=== PATIENT | male | born 1950 | race Caucasian/White ===

== ENCOUNTER 2020-08-22 06:22 | Outpatient (REF) | payer MEDICARE, BC, SELFPAY | END 2020-08-22 06:23 | disposition home or self-care (01) | LOC: HO.LAB 06:22 | PROVIDERS: PCP Internal Medicine; Visit Provider Internal Medicine | DX: Z20.822 Contact with and (suspected) exposure to COVID-19 (principal) | CPT/HCPCS: 36415; C9803; U0003 ==

== ENCOUNTER → 2020-09-27 10:52 | Outpatient (BNVA) | payer MEDICARE, BC, SELFPAY | PROVIDERS: PCP Internal Medicine; Visit Provider Psychiatry & Neurology Neurology | DX: Z13.89 Encounter for screening for other disorder (principal) | CPT/HCPCS: Q3014 ==

== ENCOUNTER 2021-05-02 06:34 | Outpatient (REF) | payer MEDICARE, BC, SELFPAY ==
[2021-05-02 06:47] LABS: MANUAL DIFF FLAG NO
[2021-05-02 07:05] LABS: Basophils Absolute Auto 0.1 X10*3/uL (0.0-0.2); Basophils Percent Auto 1.1 % (0-2); Eosinophils Absolute Auto 0.4 X10*3/uL (0.0-0.4); Eosinophils Percent Auto 6.7 % (0-4); Imm Gran Abs Auto 0.01 X10*3/uL (0.00-0.03); Imm Gran Pct Auto 0.2 % (0.0-0.4); Lymphocytes Absolute Auto 1.7 X10*3/uL (1.2-4.9); Lymphocytes Percent Auto 25.2 % (20-40); Mean Corpuscular HGB Conc 33.3 g/dl (31.0-36.0); Mean Corpuscular Hemoglobin 30.2 pg (27.0-33.0); Mean Corpuscular Volume 90.5 fL (80-98); Mean Platelet Volume 8.2 fL (9.4-12.4); Monocytes Absolute Auto 0.7 X10*3/uL (0.1-1.2); Monocytes Percent Auto 10.8 % (2-11); Neutrophils Absolute Auto 3.7 X10*3/uL (2.0-8.3); Platelet Count 213 X10*3/uL (160-400); Red Blood Count 4.31 X10*6/uL (4.60-5.80); White Blood Count 6.6 X10*3/uL (4.8-10.8)
[2021-05-02 07:18] LABS: Alanine Aminotransferase 25 U/L (0-40); Albumin Level 4.1 g/dL (3.5-5.0); Alkaline Phosphatase 65 U/L (39-117); Anion Gap 12 (12-20); Aspartate Amino Transferase 15 U/L (5-37); Bilirubin Total 1.5 mg/dL (0.0-1.0); Blood Urea Nitrogen 14 mg/dL (9-16); Calcium 9.1 mg/dL (8.4-10.2); Carbon Dioxide 26 mmol/L (22-29); Chloride 107 mmol/L (96-108); Cholesterol 152 mg/dL; Estimated Glomerular Filt Rate > 60; Glucose Random 140 mg/dL (60-115); HDL Cholesterol 42 mg/dL; LDL Cholesterol Calculated 88 mg/dl; Potassium 4.5 mmol/L (3.3-5.1); Sodium 140 mmol/L (135-145); Total Protein 6.8 g/dL (6.5-8.0); Triglycerides 114 mg/dL
[2021-05-02 07:19] LABS: Estimated Average Glucose 137 mg/dL; Hemoglobin A1c % 6.4 %
[2021-05-02 07:40] LABS: Free T4 (Free Thyroxine) 1.03 ng/dL (0.71-1.85); Thyroid Stimulating Hormone 1.41 uIU/mL (0.32-4.0)
[2021-05-02 08:12] LABS: Microalbum/Creatinine Ratio Ur 5.8 ug/mg cr
[2021-05-02 09:09] LABS: Prostate Specific Antigen Scr 0.87 ng/mL (<0.05-4.0)
[2021-05-02 11:51] LABS: Folate 14.1 ng/mL (> or = 4.0)
[2021-05-02 11:53] LABS: Vitamin B12 413 pg/mL (200-900)
== END 2021-05-02 06:35 | disposition home or self-care (01) ==
LOC: HO.LAB 06:34
PROVIDERS: PCP Internal Medicine; Visit Provider Internal Medicine
DX: I10 Essential (primary) hypertension (principal); N40.1 Benign prostatic hyperplasia with lower urinary tract symptoms; E78.00 Pure hypercholesterolemia, unspecified; R35.0 Frequency of micturition; E11.65 Type 2 diabetes mellitus with hyperglycemia; Z12.5 Encounter for screening for malignant neoplasm of prostate
CPT/HCPCS: 36415; 80053; 80061; 82043; 82607; 82746; 83036; 84153; 84439; 84443; 85025

== ENCOUNTER 2021-05-11 12:31 | Outpatient (REF) | payer MEDICARE, BC, SELFPAY ==
--- NOTE | ~2021-05-11 | XR_ITS ---
EXAMINATION: XR HIP, RIGHT , CLINICAL INFORMATION: Pain COMPARISON: 2019 TECHNIQUE: Frontal and lateral views of the hip acquired. , AP pelvis FINDINGS: There is no evidence of acute fracture or dislocation. There are mild degenerative arthritic changes of the hip evident by sclerotic changes of the acetabular roof and narrowing of the joint space. Mild degenerative changes of the symphysis pubis. Mild degenerative changes of the SI joints. Adjacent pubic rami are intact. Surrounding soft tissues are unremarkable. XR/XR hip RT min 2V IMPRESSION: Mild DJD. .
== END 2021-05-11 12:32 | disposition home or self-care (01) ==
LOC: HO.XRAY 12:31
PROVIDERS: PCP Internal Medicine; Visit Provider Internal Medicine
DX: M25.551 Pain in right hip (principal)
CPT/HCPCS: 73502

== ENCOUNTER 2021-06-24 20:30 | Emergency (ER) | payer MEDICARE, BC, SELFPAY ==
--- NOTE | ~2021-06-24 | US_ITS ---
EXAMINATION: US VENOUS WITH DOPPLER LOWER EXTREMITY, RIGHT CLINICAL INFORMATION: Calf pain. Prior deep vein thrombosis. COMPARISON: Right lower extremity venous ultrasound dated 06/18/2019. TECHNIQUE: Ultrasound of the deep veins is performed from the hip to the calf with compression sonography and color and pulse Doppler assessment. Spectral analysis with color-flow imaging is performed. FINDINGS: There is normal venous compression and respiratory variation and augmented flow. The visualized common femoral vein, superficial femoral vein, profunda femoral vein, popliteal vein, and the trifurcation region shows no evidence of deep venous thrombosis. There is no significant popliteal fossa cyst. If the patient's symptoms persist, follow up ultrasound in 5 days 7 days might be of value to exclude proximal propagation from a non-visualized calf vein. US/US venous duplex LE RT IMPRESSION: No DVT demonstrated in the right lower extremity.
[2021-06-24 20:45] VITALS: BP 145/86; PULSE 74; RESP 15; TEMP 36.9; O2SAT 96; BMI 28.0
[2021-06-24 21:35] VITALS: BP 122/60; PULSE 68; RESP 16; TEMP 36.7; O2SAT 96
--- NOTE | 2021-06-24 21:40 | ED.EXTPRO ---
HPI - Extremity Problem General Chief complaint: Extremity Injury, Lower Stated complaint: rt leg pain Time Seen by Provider: 06/24/21 21:39 Source: patient Mode of arrival: ambulatory Limitations: no limitations History of Present Illness HPI Narrative: Patient history of DVT in the past complaining of pain in the right leg calf area for last 24 hours no known trauma patient drives 30-45 minutes every day. No shortness of breath no leg swelling or redness no family history of blood clot Related Data Home Medications Medication Instructions Recorded Confirmed aspirin 81 mg tablet,delayed 81 mg PO DAILY 05/11/20 02/08/21 release (Adult Aspirin Regimen) Previous Rx's Medication Instructions Recorded metformin 500 mg tablet 500 mg PO BID #180 tab 10/18/20 atenolol 25 mg tablet 25 mg PO DAILY 90 Days #90 tab 02/01/21 lisinopril 20 mg tablet 20 mg PO DAILY 90 Days #90 tab 02/01/21 rosuvastatin 5 mg tablet (Crestor) 5 mg PO DAILY #90 tab 03/13/21 meloxicam 7.5 mg tablet 7.5 mg PO DAILY #30 tab 06/05/21 Allergies Allergy/AdvReac Type Severity Reaction Status Date / Time atorvastatin [Lipitor] Allergy Unknown Unknown Verified 05/11/21 11:52 simvastatin Allergy Unknown Unknown Verified 05/11/21 11:52 Review of Systems Review of Systems: Yes all other systems are reviewed and are negative [facility] Past Medical History Medical History BPH (benign prostatic hyperplasia) Concussion GERD (gastroesophageal reflux disease) [place] syndrome Hypercholesterolemia Hypertension Obstructive sleep apnea Tubular adenoma of colon Type 2 diabetes mellitus with hyperglycemia Surgical History History of colonoscopy History of removal of cyst Hx of knee surgery Family History Family History Father Diabetes CVD (cardiovascular disease) Mother Stroke Sister Cancer Social History Social History Housing: House Alcohol intake: current Alcohol intake frequency: holidays/special occasions only Patient Tobacco Use Status: Never used Tobacco e-Cigarette/Vaping Use: Never Used Advance Directives: No Advance Directives Information Provided: No service: No Current occupational status: employed and retired Physical Exam Vital Signs: Vital Signs: Last Vital Signs Temp 98 F 06/24/21 22:36 Pulse 86 06/24/21 22:36 Resp 18 06/24/21 22:36 BP 111/60 06/24/21 22:36 Pulse Ox 99 06/24/21 22:36 Body Mass Index 28.0 Appearance: Alert. Oriented X3. No acute distress. ENT: Pharynx normal. Oral Mucosa moist Neck: Normal inspection. Neck supple. CVS: Normal heart rate and rhythm. Pulses normal. Respiratory: No respiratory distress. Equal air entry bilateral, Abdomen: Soft and nontender. Bowel sounds are present, Skin: Skin warm and dry. Normal skin color. Normal skin turgor. Extremities: No lower extremity edema. Mild deep right calf tenderness Vivienne sign is negative no swelling of the calf , skin color is normal Neuro: Oriented X 3. No motor deficit. No sensory deficit MDM - Extremity (Nontraumatic) MDM Narrative Medical decision making narrative: Patient with right calf pain likely musculoskeletal , who will discharge patient home Lab Data Result diagrams: 06/24/21 21:54 06/24/21 21:54 Labs: Lab Results 06/24/21 06/24/21 06/24/21 Range/Units 21:54 21:54 21:54 WBC 8.2 (4.8-10.8) X10*3/uL RBC 4.17 L (4.60-5.80) X10*6/uL Hgb 12.6 L (14.0-18.0) g/dl Hct 37.6 L (42.0-52.0) % MCV 90.2 (80.0-98.0) fL MCH 30.2 (27.0-33.0) pg MCHC 33.5 (31.0-36.0) g/dl RDW 12.5 (11.0-16.0) % Plt Count 206 (160-400) X10*3/uL MPV 8.1 L (9.4-12.4) fL Immature Gran % (Auto) 0.2 (0.0-0.4) % Neut % (Auto) 50.5 (45-73) % Lymph % (Auto) 30.3 (20-40) % [place] % (Auto) 12.0 H (2-11) % Eos % (Auto) 6.0 H (0-4) % Baso % (Auto) 1.0 (0-2) % Lymph # (Auto) 2.5 (1.2-4.9) X10*3/uL [place] # (Auto) 1.0 (0.1-1.2) X10*3/uL Eos # (Auto) 0.5 H (0.0-0.4) X10*3/uL Baso # (Auto) 0.1 (0.0-0.2) X10*3/uL Abs Immat Gran (auto) 0.02 (0.00-0.03) X10*3/uL Absolute Neuts (auto) 4.2 (2.0-8.3) x10*3/uL Absolute Nucleated RBC 0.000 (0.0-0.012) X10*3/uL Nucleated RBC % (auto) 0.0 (0.0-0.2) /100WBC PT 11.6 (9.9-13.0) SEC INR 1.0 (0.9-1.1) D-Dimer High Sensitivty 206 NG/ML Sodium 140 (135-145) mmol/L Potassium 3.9 (3.3-5.1) mmol/L Chloride 106 (96-108) mmol/L Carbon Dioxide 25 (22-29) mmol/L Anion Gap 13 (12-20) BUN 16 (9-16) mg/dL Creatinine 1.16 (0.5-1.4) mg/dL Estim Creat Clear Calc 65.3 Estimated GFR > 60 Random Glucose 121 H (60-115) mg/dL Calcium 9.7 D (8.4-10.2) mg/dL Discharge Plan Discharge Clinical Impression: Musculoskeletal leg pain Qualifiers: Laterality: right Qualified Code(s): M79.604 - Pain in right leg Patient Disposition: Home, Self-Care Instructions: Musculoskeletal Pain (ED) Additional Instructions: Your Doppler is negative for blood clot leg pain likely musculoskeletal Take Tylenol/Motrin for pain as needed Prescriptions: No Action metformin 500 mg tablet 500 mg PO BID Qty: 180 RF: 3 lisinopril 20 mg tablet 20 mg PO DAILY 90 Days Qty: 90 RF: 3 atenolol 25 mg tablet 25 mg PO DAILY 90 Days Qty: 90 RF: 3 rosuvastatin [Crestor] 5 mg tablet 5 mg PO DAILY Qty: 90 RF: 3 meloxicam 7.5 mg tablet 7.5 mg PO DAILY Qty: 30 RF: 0 aspirin [Adult Aspirin Regimen] 81 mg tablet,delayed release (DR/EC) 81 mg PO DAILY RF: 0
--- NOTE | 2021-06-24 21:42 | PC.NURSE ---
hx of blood clot 10 years ago. States he is having similar pain in RLE. Warm to touch. Pulses equal and normal. 8/10 pain.
[2021-06-24 22:00] LABS: Basophils Absolute Auto 0.1 X10*3/uL (0.0-0.2); Eosinophils Absolute Auto 0.5 X10*3/uL (0.0-0.4); Hematocrit 37.6 % (42.0-52.0); Hemoglobin 12.6 g/dl (14.0-18.0); Imm Gran Abs Auto 0.02 X10*3/uL (0.00-0.03); Imm Gran Pct Auto 0.2 % (0.0-0.4); Lymphocytes Absolute Auto 2.5 X10*3/uL (1.2-4.9); Lymphocytes Percent Auto 30.3 % (20-40); MANUAL DIFF FLAG NO; Mean Corpuscular HGB Conc 33.5 g/dl (31.0-36.0); Mean Corpuscular Hemoglobin 30.2 pg (27.0-33.0); Mean Corpuscular Volume 90.2 fL (80.0-98.0); Mean Platelet Volume 8.1 fL (9.4-12.4); Neutrophils Absolute Auto 4.2 x10*3/uL (2.0-8.3); Neutrophils Percent Auto 50.5 % (45-73); Platelet Count 206 X10*3/uL (160-400); Red Blood Count 4.17 X10*6/uL (4.60-5.80); Red Cell Distribution Width 12.5 % (11.0-16.0); White Blood Count 8.2 X10*3/uL (4.8-10.8)
[2021-06-24 22:06] LABS: Prothrombin Time 11.6 SEC (9.9-13.0)
[2021-06-24 22:08] LABS: D Dimer High Sensitivity 206 NG/ML
[2021-06-24 22:15] LABS: Anion Gap 13 (12-20); Blood Urea Nitrogen 16 mg/dL (9-16); Calcium 9.7 mg/dL (8.4-10.2); Carbon Dioxide 25 mmol/L (22-29); Chloride 106 mmol/L (96-108); Creatinine Clr Calc Pharmacy 65.3; Estimated Glomerular Filt Rate > 60; Glucose Random 121 mg/dL (60-115); Potassium 3.9 mmol/L (3.3-5.1); Sodium 140 mmol/L (135-145)
[2021-06-24 22:36] VITALS: BP 111/60; PULSE 86; RESP 18; TEMP 36.6; O2SAT 99
[2021-06-24] MEDS: Ibuprofen 600 MG TABLET PO (22:56)
== END 2021-06-24 22:57 | disposition home or self-care (01) ==
PROVIDERS: Emergency Provider Internal Medicine; PCP Internal Medicine
DX: M79.604 Pain in right leg (principal); I10 Essential (primary) hypertension; E11.9 Type 2 diabetes mellitus without complications; Z86.718 Personal history of other venous thrombosis and embolism
CPT/HCPCS: 36415; 80048; 85025; 85379; 85610; 93971; 99284

== ENCOUNTER 2021-07-05 10:45 | Outpatient (REF) | payer MEDICARE, BC, SELFPAY ==
--- NOTE | ~2021-07-05 | XR_ITS ---
EXAMINATION: XR KNEE, RIGHT CLINICAL INFORMATION: Knee pain COMPARISON: None TECHNIQUE: AP and lateral views of the right knee. FINDINGS: Small joint effusion. No fracture or subluxation. Prominent marginal osteophytes at the moderately degenerated patellofemoral compartment. There are osteophytes at the medial and lateral tibiofemoral compartments. The joint space loss of the medial compartment is severe. Associated genu varus deformity. A few intra-articular osteochondral bodies are noted. XR/XR knee RT 2V IMPRESSION: Tricompartmental osteoarthritis, small joint effusion and intra-articular osteochondral bodies of the right knee. The osteoarthritis is severe at the medial tibiofemoral compartment.
== END 2021-07-05 10:46 | disposition home or self-care (01) ==
LOC: HO.XRAY 10:45
PROVIDERS: PCP Internal Medicine; Visit Provider Internal Medicine
DX: M25.561 Pain in right knee (principal)
CPT/HCPCS: 73560

== ENCOUNTER 2021-07-19 10:00 | Outpatient (RCR) | payer MEDICARE, BC, SELFPAY ==
--- NOTE | 2021-06-20 14:38 | MHC.PT.EP ---
[facility] [place] Office [place] Office [place] Office [address] Garry Espinoza [address] [phone] F: [phone] F: [phone] F: [phone] F: [phone] Physical Therapy Plan of Care Date of Evaluation: Date of Surgery: N/A Diagnosis: Pain in right hip Assessment: Pt is a pleasant 70yo M who has been referred to PT for R hip pain. He presents today with current impairments in decreased hip ROM, decreased glute/hip and quad strength, decreased muscle length, impaired balance, and gait. He is + for Trendelenberg gait. He is limited functionally by prolonged standing, walking, descending stairs and getting in/out of the car. His signs and symptoms may be consistent with R hip OA. He is a good candidate for skilled PT services to address current impairments in order to facilitate return to PLOF. Frequency and Duration: The patient will be seen 2x/week for 4 weeks Short Term Goals: Pt will be I with HEP to promote self management of symptoms Pt will improve R hip flexion and IR ROM by at least 5 deg Correction Goals: Pt will improve R glute med strength to at least 4/5 to assist with standing functional tasks Pt will tolerate standing and walking > 1 hour with pain < 2 /10 Pt will demonstrate improvements in functional mobility as evidenced by statistically significant improvement in LEFI outcome measure Treatment Plan: Modalities to reduce pain, spasms and effusion. Manual therapy to restore motion and function. Therapeutic exercise to improve strength and flexibility. Neuromuscular re-education for posture and balance. Therapeutic activities to return to functional activities of daily living. Electronically signed by: Guerline Jones, PT, DPT Please sign and return to therapist. Thank you for your referral.
--- NOTE | 2021-07-25 13:41 | MHC.PT.DC ---
[facility] [place] Office [place] Office [place] Office [address] Garry Espinoza [address] [phone] F: [phone] F: [phone] F: [phone] F: [phone] Physical Therapy Discharge Report Diagnosis: Pain in right hip Date of Surgery: N/A Date of Evaluation: 06/20/21 Date of Discharge: 07/25/21 Treatments to Date: 8 Cancellations to Date: 0 No Shows to Date: 0 Discharge Status: Achieved Goals Improved Function Independent with HEP Discharge Summary: Pt attended skilled PT services from 06/20/21-07/19/21. He made good progress since SOC throughout course of PT. He improved his score on LEFI outcome measure from 36/80 on initial PT evaluation to 41/80 on last attended visit on 07/19/21. Pt I with HEP. Pt is being D/C from skilled PT services at this time. Electronically signed by: Guerline Jones, PT, DPT Please sign and return to therapist. Thank you for your referral.
== END 2021-07-25 13:41 | disposition home or self-care (01) ==
LOC: HO.PT 10:00
PROVIDERS: PCP Internal Medicine; Visit Provider Internal Medicine
DX: M25.551 Pain in right hip (principal)
CPT/HCPCS: 97110; 97162

== ENCOUNTER 2021-09-02 11:35 | Outpatient (REF) | payer MEDICARE, BC, SELFPAY ==
--- NOTE | ~2021-09-02 | XR_ITS ---
EXAMINATION: XR ABDOMEN COMPLETE CLINICAL INDICATION: Constipation COMPARISON: None TECHNIQUE: 2 views of the abdomen. FINDINGS: No dilated air-filled loops of small bowel are noted to suggest obstructive process. No abnormal air-fluid levels identified on upright imaging. There is a mild to moderate stool burden throughout the majority the colon. No gross free intra-abdominal air. Mild to moderate scoliotic and degenerative changes of the lumbar spine. Small pelvic calcifications are likely vascular in nature. XR/XR abdomen 3V IMPRESSION: Mild to moderate colonic stool burden.
== END 2021-09-02 11:36 | disposition home or self-care (01) ==
LOC: HO.HMGCX 11:35
PROVIDERS: Visit Provider Physician Assistant
DX: K59.09 Other constipation (principal)
CPT/HCPCS: 74021

== ENCOUNTER 2021-09-28 12:55 | Outpatient (REF) | payer MEDICARE, BC, SELFPAY ==
[2021-09-28 13:19] LABS: MANUAL DIFF FLAG NO
[2021-09-28 13:50] LABS: Basophils Absolute Auto 0.1 X10*3/uL (0.0-0.2); Basophils Percent Auto 1.1 % (0-2); Eosinophils Absolute Auto 0.4 X10*3/uL (0.0-0.4); Eosinophils Percent Auto 5.4 % (0-4); Hematocrit 40.2 % (42.0-52.0); Hemoglobin 13.2 g/dl (14.0-18.0); Imm Gran Abs Auto 0.02 X10*3/uL (0.00-0.03); Imm Gran Pct Auto 0.3 % (0.0-0.4); Lymphocytes Absolute Auto 1.7 X10*3/uL (1.2-4.9); Lymphocytes Percent Auto 23.5 % (20-40); Mean Corpuscular HGB Conc 32.8 g/dl (31.0-36.0); Mean Corpuscular Hemoglobin 29.4 pg (27.0-33.0); Mean Corpuscular Volume 89.5 fL (80.0-98.0); Mean Platelet Volume 8.5 fL (9.4-12.4); Monocytes Absolute Auto 0.8 X10*3/uL (0.1-1.2); Monocytes Percent Auto 10.1 % (2-11); Neutrophils Absolute Auto 4.4 x10*3/uL (2.0-8.3); Neutrophils Percent Auto 59.6 % (45-73); Platelet Count 248 X10*3/uL (160-400); Red Blood Count 4.49 X10*6/uL (4.60-5.80); Red Cell Distribution Width 12.6 % (11.0-16.0); White Blood Count 7.4 X10*3/uL (4.8-10.8)
[2021-09-28 14:28] LABS: Alanine Aminotransferase 18 U/L (0-40); Albumin Level 4.2 g/dL (3.5-5.0); Alkaline Phosphatase 75 U/L (39-117); Anion Gap 8 (12-20); Aspartate Amino Transferase 14 U/L (5-37); Bilirubin Total 1.6 mg/dL (0.0-1.0); Blood Urea Nitrogen 14 mg/dL (9-16); Calcium 9.5 mg/dL (8.4-10.2); Carbon Dioxide 29 mmol/L (22-29); Chloride 106 mmol/L (96-108); Cholesterol 139 mg/dL; Estimated Glomerular Filt Rate > 60; Glucose Random 121 mg/dL (60-115); HDL Cholesterol 37 mg/dL; LDL Cholesterol Calculated 79 mg/dl; Potassium 4.3 mmol/L (3.3-5.1); Sodium 139 mmol/L (135-145); Total Protein 6.8 g/dL (6.5-8.0); Triglycerides 116 mg/dL
[2021-09-28 14:32] LABS: Erythrocyte Sedimentation Rate 11 MM/HR (0-15)
== END 2021-09-28 12:56 | disposition home or self-care (01) ==
LOC: HO.LAB 12:55
PROVIDERS: PCP Internal Medicine; Visit Provider Nurse Practitioner Acute Care
DX: R10.9 Unspecified abdominal pain (principal)
CPT/HCPCS: 36415; 80053; 80061; 85025; 85652

== ENCOUNTER 2021-10-02 06:42 | Outpatient (REF) | payer MEDICARE, BC, SELFPAY ==
--- NOTE | ~2021-10-02 | CT_ITS ---
EXAMINATION: CT ABDOMEN AND PELVIS WITH CONTRAST CLINICAL INFORMATION: Unspecified abdominal pain. COMPARISON: Abdominal ultrasound 06/24/2010, CT abdomen and pelvis 08/13/2008 TECHNIQUE: Multidetector volumetric images were obtained from the superior aspect of the liver through the pubic symphysis following administration 85 mL of Omnipaque 350 intravenous contrast. Sagittal and coronal reformatted images were obtained on the technologist's workstation. Oral contrast: Yes This CT examination was performed using dose optimization techniques as appropriate, variously including the following: *Automated exposure control *Adjustment of mA and/or kV according to patient size (this includes techniques or standardized protocols for targeted exams where dose is matched to indication/reason for exam; i.e. extremities or head) *Use of iterative reconstruction technique DLP: 694 mGy-cm FINDINGS: Significant motion artifact degrades the quality of the examination. LUNG BASES: The visualized lung bases are unremarkable. LIVER, GALLBLADDER, AND BILIARY TREE: The liver is normal in size, shape, and attenuation. No focal hepatic lesion or biliary ductal dilatation is present. The gallbladder is unremarkable with no evidence of radiopaque gallstones, gallbladder wall thickening, or obvious pericholecystic inflammatory changes. PANCREAS: Unremarkable. SPLEEN: Unremarkable. ADRENAL GLANDS: Unremarkable. KIDNEYS AND URETERS: The kidneys are normal in size, shape, and attenuation. No hydronephrosis, hydroureter, or calculi seen. No perinephric stranding. BLADDER: Unremarkable. GASTROINTESTINAL TRACT: Small hiatal hernia. Motion artifact degrades evaluation of the proximal bowel. This segment needed to be rescanned. There is circumferential wall thickening of the distal duodenum and proximal jejunum without surrounding inflammatory changes. There is no discrete focal mass. There is no evidence of bowel obstruction. This appearance is a change compared to the study from 2008. The distal small bowel is normal in caliber and wall thickness. The appendix is positioned within the right inguinal hernia but there is no evidence of appendicitis. There is significant sigmoid diverticulosis without evidence of acute diverticulitis. ABDOMINAL WALL: There is a moderate indirect right inguinal hernia containing fat in the appendix. There is probably also a small indirect left inguinal hernia containing fat. LYMPH NODES: Normal. VASCULAR: Mild atherosclerosis. No aneurysm. PELVIC VISCERA: Unremarkable. OSSEOUS STRUCTURES: Degenerative changes in the spine. No suspicious lesions. CT/CT abdomen pelvis w con IMPRESSION: Limited due to motion artifact. Smooth circumferential wall thickening of the distal duodenum and proximal jejunum without evidence of obstruction. This is nonspecific but consistent with duodenitis/jejunitis. Infiltrative diseases could have a similar appearance. Consider endoscopy/push enteroscopy for further evaluation if clinically indicated. Fleischner guidelines were followed.
[2021-10-02] MEDS: Barium Sulfate Oral (Vanilla) 450 ML ORAL.SUSP 900 ML PO (09:41)
[2021-10-02] MEDS: iohexoL 350 MG/ML 100 ML INFUS..BTL IV (09:41)
== END 2021-10-02 06:43 | disposition home or self-care (01) ==
LOC: HO.CT 06:42
PROVIDERS: PCP Internal Medicine; Visit Provider Nurse Practitioner Acute Care
DX: R10.9 Unspecified abdominal pain (principal)
CPT/HCPCS: 74177; Q9967

== ENCOUNTER 2021-11-07 11:37 | Day surgery (SDC) | payer MEDICARE, BC, SELFPAY ==
--- NOTE | 2021-11-06 11:00 | P.CONAN_ITS ---
Documented by User: Fide Adler NP 11/06/21 11:03 HPI - Anesthesia Eval Consult details Narrative: 71yo M for Upper Endoscopy PMF Active Problems Active Problems: All Active Problems (Updated 11/06/21 @ 09:46 by Radha Sales MD) Constipation (Acute) Esophagitis (Acute) Diverticulitis (Acute) Constipation (Acute) Right knee pain (Acute) Right hip pain (Acute) Subcutaneous nodule of left forearm (Acute) Tick bite of abdomen (Acute) Obstructive sleep apnea (Acute) GERD (gastroesophageal reflux disease) (Acute) BPH (benign prostatic hyperplasia) (Acute) Hypercholesterolemia (Acute) Hypertension (Acute) Type 2 diabetes mellitus with hyperglycemia (Acute) Past Medical History Medical History (Updated 11/07/21 @ 12:04 by Ashleigh Alexander RN) Adult general medical exam BPH (benign prostatic hyperplasia) Concussion GERD (gastroesophageal reflux disease) [place] syndrome Hypercholesterolemia Hypertension Negative depression screening Obstructive sleep apnea Tubular adenoma of colon Type 2 diabetes mellitus with hyperglycemia Family History Family History Father Diabetes CVD (cardiovascular disease) Mother Stroke Sister Cancer Surgical History Surgical History History of colonoscopy History of removal of cyst Hx of knee surgery Social History Social History Housing: House Alcohol intake: current Alcohol intake frequency: holidays/special occasions only Patient Tobacco Use Status: Never used Tobacco e-Cigarette/Vaping Use: Never Used Use of substances other than those prescribed or required for medical reasons: No Are you DNR?: No Advance Directives: No Advance Directives Information Provided: Yes service: No Current occupational status: employed and retired Cognitive needs: No Hearing needs: No Vision needs: Yes Meds Allergies Allergy/AdvReac Type Severity Reaction Status Date / Time atorvastatin [Lipitor] Allergy Unknown Unknown Verified 11/06/21 09:37 simvastatin Allergy Unknown Unknown Verified 11/06/21 09:37 Home Medications Medication Instructions Recorded Confirmed Last Taken Type aspirin 81 mg tablet,delayed 81 mg PO DAILY 05/11/20 11/06/21 Unknown History release (Adult Aspirin Regimen) Exam Exam Date and Time: November 06, 2021 1100 Pertinent Lab Results Pertinent Lab Results: Laboratory Tests 09/28/21 09/28/21 13:17 13:17 WBC 7.4 Hgb 13.2 L Hct 40.2 L Plt Count 248 Sodium 139 Potassium 4.3 Chloride 106 Carbon Dioxide 29 BUN 14 Creatinine 0.79 Assessment and Plan Assessment Anesthesia Assessment: Chart Reviewed Documented by User: Ramírez Valladares MD 11/07/21 15:00 PMFSH Past Medical History Medical History (Updated 11/07/21 @ 12:04 by Ashleigh Alexander RN) Adult general medical exam BPH (benign prostatic hyperplasia) Concussion GERD (gastroesophageal reflux disease) [place] syndrome Hypercholesterolemia Hypertension Negative depression screening Obstructive sleep apnea Tubular adenoma of colon Type 2 diabetes mellitus with hyperglycemia Family History Family History Father Diabetes CVD (cardiovascular disease) Mother Stroke Sister Cancer Family history of problems with anesthesia: No Surgical History Surgical History History of colonoscopy History of removal of cyst Hx of knee surgery History of Problems with Anesthesia: No Social History Social History Housing: House Alcohol intake: current Alcohol intake frequency: holidays/special occasions only Patient Tobacco Use Status: Never used Tobacco e-Cigarette/Vaping Use: Never Used Use of substances other than those prescribed or required for medical reasons: No Are you DNR?: No Advance Directives: No Advance Directives Information Provided: Yes service: No Current occupational status: employed and retired Cognitive needs: No Hearing needs: No Vision needs: Yes Meds Allergies Allergy/AdvReac Type Severity Reaction Status Date / Time atorvastatin [Lipitor] Allergy Unknown Unknown Verified 11/06/21 09:37 simvastatin Allergy Unknown Unknown Verified 11/06/21 09:37 Home Medications Medication Instructions Recorded Confirmed Last Taken Type aspirin 81 mg tablet,delayed 81 mg PO DAILY 05/11/20 11/06/21 Unknown History release (Adult Aspirin Regimen) Exam Airway Mallampati Class: III TM Dist: >3cm Neck ROM: Full Assessment and Plan Assessment Anesthesia Assessment: Anesthesia Plan Discussed Final Anesthetic Review Family History of Problems with Anesthesia: No History of Problems with Anesthesia: No NPO: Yes ASA Class: III Final Preanesthetic Review: No Changes in Pt Med Stat, Meds/Allgs Chart Reviewed, Consent Obtained/Reviewed and Anes Risks/Benef Reviewed Patient Risk: Low Procedure Risk: Low Anesthetic Plan Anesthetic Plan: MAC: Disposition: Standard PACU
[2021-11-07] VITALS (7 sets, daily range): BP systolic 95–156; BP diastolic 55–93; PULSE 60–96; RESP 16–17; TEMP 36.5–36.6; O2SAT 95–99; BMI 27.3
[2021-11-07] MEDS: Lactated Ringers 1,000 ML 100 ML IVCONT (12:33)
[2021-11-07 12:35] LABS: Glucose, Whole Blood 131 mg/dL (60-115)
--- NOTE | 2021-11-07 14:29 | MHC.SHP ---
Pre-Procedural Eval Section A Date of Service: 11/07/21 The patient is an INPATIENT: No Changes since office visit: No Cold of Flu in the past 2 weeks, No New Medical Problems, No Changes in Medication and No Patient answered all questions The History & Physical has been completed within 30 days and I have reviewed it.: Yes Section B Chief Complaint: Abnormal findings on diagnostic imaging Allergies: Allergies Allergy/AdvReac Type Severity Reaction Status Date / Time atorvastatin [Lipitor] Allergy Unknown Unknown Verified 11/06/21 09:37 simvastatin Allergy Unknown Unknown Verified 11/06/21 09:37 Plan I have reviewed the history and physical and performed a pertinent physical examination on my patient. No changes have occurred unless specified.
--- NOTE | 2021-11-07 15:27 | PM.OP ---
Brief Operative Note Date of Service: 11/07/21 Pre-op diagnosis: abnl ct scan duodenum Procedure: egd, push enteroscopy with biopsies Surgeon: Mayank Laird Anesthesia: MAC Was an Ssis Ssrs Developer used for this Procedure?: No Estimated blood loss (mL): 5 Pathology: other (see path req) Condition: stable Disposition: PACU
[2021-11-07 16:14] LABS: Glucose, Whole Blood 111 mg/dL (60-115)
--- NOTE | 2021-11-08 02:32 | OP_ITS ---
SURGEON: Mayank Laird MD INDICATIONS: Abnormal CAT scan of the duodenum. PREOPERATIVE DIAGNOSIS: POSTOPERATIVE DIAGNOSIS: PROCEDURE PERFORMED: ESTIMATED BLOOD LOSS: COMPLICATIONS: ANESTHESIA: ASSISTANTS: SPECIMENS: PROCEDURES: 1. Upper endoscopy with biopsy. 2. Push enteroscopy with biopsy. MEDICATIONS: Monitored anesthesia care. DESCRIPTION OF PROCEDURE: History and physical performed. The risks and benefits of the procedure were explained to the patient. Informed consent was obtained. The patient was placed in the left lateral decubitus position. The Olympus video gastroscope was introduced into the esophagus, stomach, and duodenum. Examination was performed and the scope was removed. Next, the pediatric colonoscope was inserted and advanced to the proximal jejunum. Examination was performed and the scope was removed. He tolerated the procedure well and was returned to recovery area in stable condition. FINDINGS: Esophagus: The esophagus was normal. There was a small sliding hiatal hernia. Stomach: The stomach was normal without evidence of masses or ulcers. Antral biopsies were obtained. Duodenum: The bulb and second portion were normal. Biopsies were obtained from the mucosa at the full length of insertion of the gastroscope, which appeared to be approximately 20 cm beyond the pylorus. With the pediatric colonoscope, we were able to pass the scope through the duodenum into the proximal jejunum. Biopsies were then obtained at about 110 cm from the incisors, which was approximately 45 cm beyond the pylorus. The mucosa in the small bowel from the pylorus to the proximal jejunum appeared entirely normal with no mucosal abnormalities, no evidence of Crohn disease, malignancy, or narrowing. IMPRESSION: 1. Abnormal CAT scan of the duodenum. 2. Hiatal hernia. RECOMMENDATION: Follow up the biopsy results. MD TUCKER Pfeiffer/KATHY / [id number] MTDD
== END 2021-11-07 17:02 | disposition home or self-care (01) ==
PROVIDERS: PCP Internal Medicine; Visit Provider Internal Medicine Gastroenterology
PROC: 0DJ08ZZ Inspection of Upper Intestinal Tract, Via Natural or Artificial Opening Endoscopic (ICD-10-PCS; CPT 43235; principal; 2021-11-07 13:00)
DX: R93.3 Abnormal findings on diagnostic imaging of other parts of digestive tract (principal); K57.92 Diverticulitis of intestine, part unspecified, without perforation or abscess without bleeding; K44.9 Diaphragmatic hernia without obstruction or gangrene; K59.00 Constipation, unspecified; R74.8 Abnormal levels of other serum enzymes; K21.9 Gastro-esophageal reflux disease without esophagitis; G47.33 Obstructive sleep apnea (adult) (pediatric); I10 Essential (primary) hypertension; E11.9 Type 2 diabetes mellitus without complications; R97.20 Elevated prostate specific antigen [PSA]; Z79.82 Long term (current) use of aspirin; Z79.84 Long term (current) use of oral hypoglycemic drugs; Z79.899 Other long term (current) drug therapy
CPT/HCPCS: 44361; 43239; 82947; 88305; 88342; J3010

== ENCOUNTER 2021-11-28 07:26 | Outpatient (REF) | payer MEDICARE, BC, SELFPAY ==
--- NOTE | ~2021-11-28 | FL_ITS ---
EXAMINATION: XR UPPER GI SERIES WITH SMALL BOWEL CLINICAL INFORMATION: Epigastric pain COMPARISON: Previous CT of the abdomen and pelvis September 2021 TECHNIQUE: Upper GI was performed using thin and thick barium. Small bowel follow-through was subsequently performed. FINDINGS: The stomach is normal-appearing. No fold thickening, mass, ulcer or stricture is seen. There is gastroesophageal reflux. No hernia is seen. No esophageal mass or stricture is seen. Small bowel transit is normal with contrast reaching the colon at 165 minutes. There is abnormal appearance to the proximal small bowel with regular fold thickening and increased folds in the duodenum and jejunum. Small bowel is normal in caliber. No focal lesion or stricture is seen. The appendix is normal. FLUOROSCOPY TIME: 1.2 minutes DOSE AREA PRODUCT: 31 esquivel per centimeter squared. 37 saved fluoroscopic images. 13 overhead images. FL/FL upper GI w air w SBFT IMPRESSION: Gastroesophageal reflux. Normal-appearing stomach. Abnormal appearing proximal small bowel with increased folds in the duodenum and jejunum and regular fold thickening. Differential would include amyloid, Whipple's disease, eosinophilic enteritis, infection such as giardiasis and Strongyloides, lymphoma, lymphoid hyperplasia, histiocytosis, mastocytosis, wall edema and hemorrhage and malabsorption.
[2021-11-28 12:48] LABS: Hematocrit 40.9 % (42.0-52.0); Hemoglobin 13.6 g/dl (14.0-18.0); Mean Corpuscular HGB Conc 33.3 g/dl (31.0-36.0); Mean Corpuscular Hemoglobin 29.3 pg (27.0-33.0); Mean Corpuscular Volume 88.1 fL (80.0-98.0); Mean Platelet Volume 8.6 fL (9.4-12.4); Platelet Count 191 X10*3/uL (160-400); Red Blood Count 4.64 X10*6/uL (4.60-5.80); Red Cell Distribution Width 12.8 % (11.0-16.0); White Blood Count 4.7 X10*3/uL (4.8-10.8)
[2021-11-28 13:16] LABS: Alanine Aminotransferase 17 U/L (0-40); Albumin Level 4.1 g/dL (3.5-5.0); Alkaline Phosphatase 74 U/L (39-117); Aspartate Amino Transferase 16 U/L (5-37); Bilirubin Direct 0.5 mg/dL (0.0-0.5); Bilirubin Total 1.6 mg/dL (0.0-1.0); Blood Urea Nitrogen 11 mg/dL (9-16); Estimated Glomerular Filt Rate > 60; Lipase 17 U/L (8-78); Total Protein 6.8 g/dL (6.5-8.0)
== END 2021-11-28 07:27 | disposition home or self-care (01) ==
LOC: HO.XRAY 07:26
PROVIDERS: Visit Provider Internal Medicine Gastroenterology
DX: R10.13 Epigastric pain (principal)
CPT/HCPCS: 36415; 74246; 74248; 80076; 82565; 83690; 84520; 85027

== ENCOUNTER 2021-12-05 11:40 | Outpatient (REF) | payer MEDICARE, BC, SELFPAY ==
[2021-12-05 13:28] LABS: CDiff Gene PCR NEGATIVE (Negative)
[2021-12-05 14:23] LABS: Leukocytes Stool Qualitative NEGATIVE (NEGATIVE)
== END 2021-12-05 11:41 | disposition home or self-care (01) ==
LOC: HO.LNP 11:40
PROVIDERS: Visit Provider Internal Medicine Gastroenterology
DX: R93.3 Abnormal findings on diagnostic imaging of other parts of digestive tract (principal)
CPT/HCPCS: 87045; 87046; 87177; 87209; 87329; 87493; 89055

== ENCOUNTER → 2021-12-14 10:08 | Outpatient (BNVA) | payer MEDICARE, BC, SELFPAY | PROVIDERS: PCP Internal Medicine; Referring Provider Internal Medicine; Visit Provider Surgery | DX: K52.9 Noninfective gastroenteritis and colitis, unspecified (principal) | CPT/HCPCS: 99202 ==

== ENCOUNTER → 2021-12-18 08:42 | Outpatient (BNVA) | payer MEDICARE, BC, SELFPAY | PROVIDERS: PCP Internal Medicine; Referring Provider Internal Medicine; Visit Provider Nurse Practitioner | DX: Z79.01 Long term (current) use of anticoagulants (principal) ==

== ENCOUNTER 2021-12-19 14:40 | Outpatient (REF) | payer MEDICARE, BC, SELFPAY ==
--- NOTE | ~2021-12-19 | XR_ITS ---
EXAMINATION: XR ABDOMEN KUB CLINICAL INDICATION: Capsule study COMPARISON: None TECHNIQUE: AP view of the abdomen. FINDINGS: No capsule/radiopaque foreign body or markers seen. There is retained oral contrast in diverticuli in the pelvis. There is stool in the distal colon. The bowel gas pattern is normal without evidence of obstruction. There is no evidence of free air. There is a right pelvic calcification probably representing a calcified phlebolith. There are degenerative changes of the spine. XR/XR KUB IMPRESSION: No radiopaque foreign bodies or markers seen. Stool in the distal colon.
== END 2021-12-19 14:41 | disposition home or self-care (01) ==
LOC: HO.XRAY 14:40
PROVIDERS: PCP Internal Medicine; Visit Provider Internal Medicine Gastroenterology
DX: K52.9 Noninfective gastroenteritis and colitis, unspecified (principal)
CPT/HCPCS: 74018

== ENCOUNTER → 2021-12-21 08:13 | Outpatient (BNVA) | payer MEDICARE, BC, SELFPAY | PROVIDERS: PCP Internal Medicine; Visit Provider Internal Medicine Gastroenterology | DX: Z13.89 Encounter for screening for other disorder (principal) | CPT/HCPCS: 91110 ==

== ENCOUNTER 2021-12-29 07:28 | Day surgery (SDC) | payer MEDICARE, BC, SELFPAY ==
--- NOTE | 2021-12-28 09:33 | P.CONAN_ITS ---
Documented by User: Fide Adler NP 12/28/21 09:34 HPI - Anesthesia Eval Consult details Narrative: 71yo M for Upper Endoscopy with distal attachment with capsule placement s/p EGD with push enteroscopy 10/2021 with TIVA PMFSH Active Problems Active Problems: All Active Problems (Updated 12/14/21 @ 16:10 by Neal Barker MD) Jejunitis (Acute) Weight loss (Acute) Medicare annual wellness visit, initial (Acute) Tick bite of abdomen (Acute) Subcutaneous nodule of left forearm (Acute) Right hip pain (Acute) Right knee pain (Acute) Constipation (Acute) Diverticulitis (Acute) Esophagitis (Acute) Constipation (Acute) Obstructive sleep apnea (Acute) GERD (gastroesophageal reflux disease) (Acute) BPH (benign prostatic hyperplasia) (Acute) Hypercholesterolemia (Acute) Hypertension (Acute) Type 2 diabetes mellitus with hyperglycemia (Acute) Past Medical History Medical History (Updated 12/14/21 @ 16:10 by Neal Barker MD) Adult general medical exam BPH (benign prostatic hyperplasia) Concussion GERD (gastroesophageal reflux disease) [place] syndrome Hypercholesterolemia Hypertension Jejunitis Negative depression screening Obstructive sleep apnea Tubular adenoma of colon Type 2 diabetes mellitus with hyperglycemia Family History Family History Father Diabetes CVD (cardiovascular disease) Mother Stroke Sister Cancer Family history of problems with anesthesia: No Surgical History Surgical History History of colonoscopy History of removal of cyst Hx of knee surgery History of Problems with Anesthesia: No Social History Social History Housing: House Alcohol intake: current Alcohol intake frequency: holidays/special occasions only Patient Tobacco Use Status: Never used Tobacco e-Cigarette/Vaping Use: Never Used Use of substances other than those prescribed or required for medical reasons: No Are you DNR?: No Advance Directives: No Advance Directives Information Provided: Yes Recently lost weight without trying: Yes How much weight loss: 24-33 pounds Eating poorly because of decreased appetite: Yes Nutrition screen score: 6 service: No Current occupational status: employed and retired Cognitive needs: No Hearing needs: No Vision needs: Yes Meds Allergies Allergy/AdvReac Type Severity Reaction Status Date / Time atorvastatin [Lipitor] Allergy Unknown Unknown Verified 12/14/21 10:22 simvastatin Allergy Unknown Unknown Verified 12/14/21 10:22 Home Medications Medication Instructions Recorded Confirmed Last Taken Type dicyclomine 20 mg tablet 20 mg PO QID 12/14/21 12/14/21 Unknown History Exam Exam Date and Time: December 28, 2021 0933 Pertinent Lab Results Pertinent Lab Results: Laboratory Tests ? 09/28/21 09/28/21 ? 13:17 13:17 WBC ?7.4 ? Hgb ?13.2 L ? Hct ?40.2 L ? Plt Count ?248 ? Sodium ? ?139 Potassium ? ?4.3 Chloride ? ?106 Carbon Dioxide ? ?29 BUN ? ?14 Creatinine ? ?0.79 Assessment and Plan Assessment Anesthesia Assessment: Chart Reviewed Final Anesthetic Review Family History of Problems with Anesthesia: No History of Problems with Anesthesia: No Documented by User: Maritza Jerez MD 12/29/21 09:07 HPI - Anesthesia Eval Consult details Narrative: 71yo M for Upper Endoscopy with distal attachment with capsule placement s/p EGD with push enteroscopy 10/2021 with TIVA (50mcg fentanyl, 680mg propofol, 100mg lidocaine) [facility] Active Problems Active Problems: All Active Problems (Updated 12/14/21 @ 16:10 by Neal Barker MD) Jejunitis (Acute) Weight loss (Acute) Medicare annual wellness visit, initial (Acute) Tick bite of abdomen (Acute) Subcutaneous nodule of left forearm (Acute) Right hip pain (Acute) Right knee pain (Acute) Constipation (Acute) Diverticulitis (Acute) Esophagitis (Acute) Constipation (Acute) Obstructive sleep apnea (Acute). Not used CPAP machine since onset of problems in July GERD (gastroesophageal reflux disease) (Acute) BPH (benign prostatic hyperplasia) (Acute) Hypercholesterolemia (Acute)> Off statins- stopped by Hypertension (Acute) Type 2 diabetes mellitus with hyperglycemia - Metformin stopped by MD Off baby aspirin Past Medical History Medical History (Updated 12/14/21 @ 16:10 by Neal Barker MD) Adult general medical exam BPH (benign prostatic hyperplasia) Concussion GERD (gastroesophageal reflux disease) [place] syndrome Hypercholesterolemia Hypertension Jejunitis Negative depression screening Obstructive sleep apnea Tubular adenoma of colon Type 2 diabetes mellitus with hyperglycemia Family History Family History Father Diabetes CVD (cardiovascular disease) Mother Stroke Sister Cancer Surgical History Surgical History History of colonoscopy History of removal of cyst Hx of knee surgery Social History Social History Housing: House Alcohol intake: current Alcohol intake frequency: holidays/special occasions only Patient Tobacco Use Status: Never used Tobacco e-Cigarette/Vaping Use: Never Used Use of substances other than those prescribed or required for medical reasons: No Are you DNR?: No Advance Directives: No Advance Directives Information Provided: Yes Recently lost weight without trying: Yes How much weight loss: 24-33 pounds Eating poorly because of decreased appetite: Yes Nutrition screen score: 6 service: No Current occupational status: employed and retired Cognitive needs: No Hearing needs: No Vision needs: Yes Meds Allergies Allergy/AdvReac Type Severity Reaction Status Date / Time atorvastatin [Lipitor] Allergy Unknown Unknown Verified 12/14/21 10:22 simvastatin Allergy Unknown Unknown Verified 12/14/21 10:22 Home Medications Medication Instructions Recorded Confirmed Last Taken Type dicyclomine 20 mg tablet 20 mg PO QID 12/14/21 12/14/21 Unknown History Exam Height,Weight and Vital Signs: Height 5 ft 9 in Weight 71.668 kg Vital Signs Temp Pulse Resp BP Pulse Ox 12/29/21 08:38 96.9 F 69 18 154/78 H 98 Pertinent Lab Results Pertinent Lab Results: Laboratory Tests ? 09/28/21 09/28/21 ? 13:17 13:17 WBC ?7.4 ? Hgb ?13.2 L ? Hct ?40.2 L ? Plt Count ?248 ? Sodium ? ?139 Potassium ? ?4.3 Chloride ? ?106 Carbon Dioxide ? ?29 BUN ? ?14 Creatinine ? ?0.79 Lab Results 12/29/21 Range/Units 08:01 POC Glucose 132 H (60-115) mg/dL Airway Mallampati Class: II TM Dist: >3cm Neck ROM: Full Loose/Missing/Broken Teeth: No Heart: RRR Lungs: CTAB Assessment and Plan Assessment Anesthesia Assessment: Anesthesia Plan Discussed Final Anesthetic Review NPO: Yes ASA Class: III Final Preanesthetic Review: No Changes in Pt Med Stat, Meds/Allgs Chart Reviewed, Consent Obtained/Reviewed and Anes Risks/Benef Reviewed Patient Risk: Intermediate Procedure Risk: Low Assessment/Block/Sedation in SS: Assess/Block/Sedation-SS Anesthetic Plan Anesthetic Plan: MAC: Disposition: Standard PACU
--- NOTE | 2021-12-28 21:07 | MHC.SHP ---
Pre-Procedural Eval Section A Date of Service: 12/29/21 Section B Chief Complaint: Esophageal obstruction,Abnormal weight loss,esopha Details of Present Illness: abn imaging, biopsy for amyloid, flow cytometry, capsule placement Relevant Family History (Specify if Yes): No Relevant Social History: None Present Medications: see Short Stay Collaborative assessment Medical History: Significant History (BPH (benign prostatic hyperplasia) Concussion GERD (gastroesophageal reflux disease) [place] syndrome Hypercholesterolemia Hypertension Jejunitis Negative depression screening Obstructive sleep apnea Tubular adenoma of colon Type 2 diabetes mellitus with hyperglycemia) History of Previous Operations: Relevant previous surgery/procedure and date(s) (History of colonoscopy History of removal of cyst Hx of knee surgery) Allergies: Allergies Allergy/AdvReac Type Severity Reaction Status Date / Time atorvastatin [Lipitor] Allergy Unknown Unknown Verified 12/14/21 10:22 simvastatin Allergy Unknown Unknown Verified 12/14/21 10:22 Review of Systems Sugical H&P ROS: Negative: Constitution, Cardiovascular, Respiratory, Neurological, Psychiatric, Hem-Onc, Allergic/Immunologic, Gastrointestinal, Genitourinary, Musculoskeletal, Integumentary, Endocrine and Eyes/Ears/Nose/Throat Exam Surgical H&P Exam: Normal: HEENT, Normal: Heart, Normal: Lungs, Normal: Extremities, Normal: Abdomen, Normal: Skin and Normal: Neurological Plan Diagnosis/Plan: Unchanged I have reviewed the history and physical and performed a pertinent physical examination on my patient. No changes have occurred unless specified.
[2021-12-29 07:51] VITALS: BMI 23.3
[2021-12-29] MEDS: Lactated Ringers 1,000 ML 100 ML IVCONT (08:37)
[2021-12-29 08:38] VITALS: BP 154/78; PULSE 69; RESP 18; TEMP 36.1; O2SAT 98
[2021-12-29 08:41] LABS: Glucose, Whole Blood 132 mg/dL (60-115)
--- NOTE | 2021-12-29 10:00 | PM.OP ---
Brief Operative Note Date of Service: 12/29/21 Pre-op diagnosis: abdominal pain, abnormal imaging , weight loss Post-op diagnosis: same Procedure: see op note Surgeon: Say Ventura MD Anesthesia: MAC Was an Scoop Machine Operator used for this Procedure?: No Estimated blood loss (mL): 0 Condition: stable Disposition: PACU
--- NOTE | 2021-12-29 10:01 | W.PM.OPN ---
Operative Note Operative Note Date of Service: 12/29/21 Narrative: Procedure Description: EGD Indication: abnormal imaging of small bowel, capsule placement, Anesthesia: MAC FLEXIBLE TRANSORAL UPPER GASTROINTESTINAL ENDOSCOPY with capsule placement and Push Enteroscopy UPPER ENDOSCOPY Consent: Indications for the procedure and potential complications of bleeding, perforation, reaction to medications and missed diagnosis were discussed with the patient and informed consent was obtained. Instrument: Olympus GIF H 190 J mid size upper endoscope and pediatric colonoscope Monitoring: Vital signs and clinical assessment, continuous EKG monitoring, Pulse oximetry, Carbon Dioxide monitoring and blood pressure monitoring were done throughout the procedure. Procedure: The patient was placed in the left lateral decubitis position and pre-procedure medications were administered and a bite block was placed. The endoscope was inserted into the mouth and advanced under direct vision to the third part of duodenum. A careful inspection was made as the upper endoscope was withdrawn including a retroflexed examination of the proximal stomach; Findings and interventions are described below. Findings: Larynx:normal Esophagus: GE junction at 41 cm, diaphragm hiatus at 44 cm, esophagitis noted with possible short segment tongues of barretts esophagus, bx take, non obstructive schatzki ring noted as well Stomach: Patchy gastric erythema with raised streaks. Biopsies were obtained. Grade 2 flap valve on retroflexed examination of the cardia. Duodenum: Normal bulb and descending duodenum, bx taken jejunum: normal appearing, bx taken The capsule was attached to the placement device and then dropped into the second part of duodenum Intervention: Biopsies as noted above, capsule placement Impression/Findings: esophagitis hiatal hernia gastritis PLAN: await bx, send for flow cytometry and Amyloid staining
[2021-12-29 10:08] VITALS: BP 108/69; PULSE 98; RESP 13; TEMP 36.7; O2SAT 97
[2021-12-29 10:23] VITALS: BP 130/86; PULSE 83; RESP 16; O2SAT 97
[2021-12-29 10:38] VITALS: BP 137/93; PULSE 81; RESP 16; TEMP 36.7; O2SAT 97
== END 2021-12-29 11:12 | disposition home or self-care (01) ==
PROVIDERS: PCP Internal Medicine; Visit Provider Internal Medicine Gastroenterology
PROC: 0DJ08ZZ Inspection of Upper Intestinal Tract, Via Natural or Artificial Opening Endoscopic (ICD-10-PCS; CPT 43235; principal; 2021-12-29 09:00)
DX: K22.2 Esophageal obstruction (principal); K20.80 Other esophagitis without bleeding; K29.70 Gastritis, unspecified, without bleeding; K44.9 Diaphragmatic hernia without obstruction or gangrene
CPT/HCPCS: 43239; 36415; 82947; 88184; 88185; 88300; 88305; 88313; 88342; J2405; J2765; J3010

== ENCOUNTER 2022-01-01 15:00 | Outpatient (REF) | payer MEDICARE, BC, SELFPAY ==
[2022-01-01 15:23] LABS: MANUAL DIFF FLAG NO
[2022-01-01 15:28] LABS: Basophils Percent Auto 0.6 % (0-2); Eosinophils Absolute Auto 0.3 X10*3/uL (0.0-0.4); Hematocrit 36.4 % (42.0-52.0); Hemoglobin 12.2 g/dl (14.0-18.0); Imm Gran Abs Auto 0.01 X10*3/uL (0.00-0.03); Imm Gran Pct Auto 0.2 % (0.0-0.4); Lymphocytes Absolute Auto 1.7 X10*3/uL (1.2-4.9); Lymphocytes Percent Auto 25.7 % (20-40); Mean Corpuscular HGB Conc 33.5 g/dl (31.0-36.0); Mean Corpuscular Hemoglobin 29.8 pg (27.0-33.0); Mean Platelet Volume 8.5 fL (9.4-12.4); Monocytes Absolute Auto 0.6 X10*3/uL (0.1-1.2); Monocytes Percent Auto 9.6 % (2-11); Neutrophils Absolute Auto 3.9 x10*3/uL (2.0-8.3); Neutrophils Percent Auto 59.9 % (45-73); Platelet Count 226 X10*3/uL (160-400); Red Blood Count 4.09 X10*6/uL (4.60-5.80); Red Cell Distribution Width 13.5 % (11.0-16.0); White Blood Count 6.5 X10*3/uL (4.8-10.8)
[2022-01-01 16:11] LABS: Erythrocyte Sedimentation Rate 12 MM/HR (0-15)
[2022-01-01 16:30] LABS: Alanine Aminotransferase 20 U/L (0-40); Alkaline Phosphatase 71 U/L (39-117); Anion Gap 12 (12-20); Aspartate Amino Transferase 15 U/L (5-37); Bilirubin Total 1.6 mg/dL (0.0-1.0); Blood Urea Nitrogen 22 mg/dL (9-16); C Reactive Protein 0.05 mg/dL (< or = 0.50); Calcium 9.3 mg/dL (8.4-10.2); Carbon Dioxide 26 mmol/L (22-29); Chloride 106 mmol/L (96-108); Estimated Glomerular Filt Rate > 60; Glucose Random 125 mg/dL (60-115); Potassium 4.4 mmol/L (3.3-5.1); Sodium 140 mmol/L (135-145); Total Protein 6.6 g/dL (6.5-8.0)
[2022-01-01 16:48] LABS: Creatinine Urine 176.84 mg/dL
[2022-01-01 16:54] LABS: Ferritin 281 ng/mL (20-250); Vitamin D 25-OH Total 30.9 ng/mL (>30)
[2022-01-01 17:02] LABS: Folate 14.7 ng/mL (> or = 4.0); Vitamin B12 865 pg/mL (200-900)
[2022-01-02 14:32] LABS: Immunoglobulin G 1056 mg/dL (600-1540)
[2022-01-04 05:32] LABS: Zinc 73 mcg/dL (60-130)
[2022-01-04 16:37] LABS: Vitamin C 1.5 mg/dL (0.2-2.1)
[2022-01-05 01:11] LABS: Vitamin A 51 mcg/dL (38-98)
[2022-01-05 19:25] LABS: Vitamin B5 (Pantothenic Acid) 61 ng/mL (<275)
[2022-01-06 17:42] LABS: Nicotinamide <20 ng/mL; Vit B3 - Nicotinic Acid <20 ng/mL
[2022-01-07 12:35] LABS: Vitamin B6 16.4 ng/mL (2.1-21.7)
[2022-01-10 12:47] LABS: Transglutaminase Ab IgG <1.0 U/mL; Transglutaminase IgA <1.0 U/mL
== END 2022-01-01 15:01 | disposition home or self-care (01) ==
LOC: HO.LAB 15:00
PROVIDERS: PCP Internal Medicine; Visit Provider Internal Medicine Gastroenterology
DX: K52.9 Noninfective gastroenteritis and colitis, unspecified (principal); R63.4 Abnormal weight loss; K75.81 Nonalcoholic steatohepatitis (NASH); K52.839 Microscopic colitis, unspecified; G89.29 Other chronic pain; R10.33 Periumbilical pain; E11.65 Type 2 diabetes mellitus with hyperglycemia
CPT/HCPCS: 80053; 82180; 82306; 82607; 82728; 82746; 82784; 84207; 84590; 84591; 84630; 85025; 85652; 86140; 86364

== ENCOUNTER 2022-01-02 13:12 | Outpatient (REF) | payer MEDICARE, BC, SELFPAY ==
[2022-01-10 22:27] LABS: Lactoferrin, Fecal, Quant. <30.0 mcg/mL
== END 2022-01-02 13:13 | disposition home or self-care (01) ==
LOC: HO.LNP 13:12
PROVIDERS: Visit Provider Internal Medicine Gastroenterology
DX: K52.9 Noninfective gastroenteritis and colitis, unspecified (principal); R63.4 Abnormal weight loss
CPT/HCPCS: 83631

== ENCOUNTER 2022-01-04 20:42 | Emergency (ER) | payer MEDICARE, BC, SELFPAY ==
--- NOTE | ~2022-01-04 | CT_ITS ---
EXAMINATION: CT ABDOMEN AND PELVIS WITHOUT CONTRAST CLINICAL INFORMATION: Weight loss. Epigastric pain. COMPARISON: 10.02.2021 TECHNIQUE: Multidetector volumetric imaging was performed from the superior aspect of the liver through the pubic symphysis. Sagittal and coronal reformatted images were obtained on the technologist's workstation. This CT examination was performed using dose optimization techniques as appropriate, variously including the following: *Automated exposure control *Adjustment of mA and/or kV according to patient size (this includes techniques or standardized protocols for targeted exams where dose is matched to indication/reason for exam; i.e. extremities or head) *Use of iterative reconstruction technique DLP: 524 mGy-cm FINDINGS: LUNG BASES: The visualized lung bases are unremarkable. LIVER, GALLBLADDER, AND BILIARY TREE: The liver is normal in size, shape, and attenuation. No focal hepatic lesion or biliary ductal dilatation is present. Gallbladder unremarkable. PANCREAS: Unremarkable. SPLEEN: Unremarkable. ADRENAL GLANDS: Unremarkable. KIDNEYS AND URETERS: The kidneys are normal in size, shape, and attenuation. No hydronephrosis, hydroureter, or calculi seen. No perinephric stranding. BLADDER: Unremarkable. GASTROINTESTINAL TRACT: Left colonic diverticulosis. No evidence of diverticulitis. Noninflamed normal-appearing appendix extends into a right indirect inguinal hernia. Stomach and small bowel are unremarkable. ABDOMINAL WALL: Right indirect inguinal hernia containing the appendix without inflammation. LYMPH NODES: Normal. VASCULAR: Aorta mildly atherosclerotic but normal caliber. PELVIC VISCERA: Mild prostatomegaly. Dystrophic calcifications present within the prostate. OSSEOUS STRUCTURES: No acute or suspicious osseous abnormalities. Lumbar spondylosis. CT/CT abdomen pelvis wo con IMPRESSION: * No acute findings within the abdomen or pelvis to explain the patient's symptomatology. * Left colonic diverticulosis without evidence of diverticulitis. * Noninflamed normal-appearing appendix extends into an indirect inguinal hernia on the right. Fleischner guidelines were followed.
[2022-01-04 20:51] VITALS: BP 164/76; PULSE 69; RESP 18; TEMP 36.6; O2SAT 96; BMI 24.3
[2022-01-04 21:02] LABS: MANUAL DIFF FLAG NO
[2022-01-04 21:04] LABS: Basophils Percent Auto 0.6 % (0-2); Eosinophils Absolute Auto 0.3 X10*3/uL (0.0-0.4); Hematocrit 35.4 % (42.0-52.0); Hemoglobin 12.2 g/dl (14.0-18.0); Imm Gran Abs Auto 0.01 X10*3/uL (0.00-0.03); Imm Gran Pct Auto 0.1 % (0.0-0.4); Lymphocytes Absolute Auto 1.8 X10*3/uL (1.2-4.9); Lymphocytes Percent Auto 25.6 % (20-40); Mean Corpuscular HGB Conc 34.5 g/dl (31.0-36.0); Mean Corpuscular Hemoglobin 30.3 pg (27.0-33.0); Mean Corpuscular Volume 87.8 fL (80.0-98.0); Mean Platelet Volume 8.4 fL (9.4-12.4); Monocytes Absolute Auto 0.6 X10*3/uL (0.1-1.2); Monocytes Percent Auto 8.7 % (2-11); Neutrophils Absolute Auto 4.3 x10*3/uL (2.0-8.3); Platelet Count 208 X10*3/uL (160-400); Red Blood Count 4.03 X10*6/uL (4.60-5.80); Red Cell Distribution Width 13.4 % (11.0-16.0)
[2022-01-04 21:25] LABS: Alanine Aminotransferase 19 U/L (0-40); Albumin Level 3.9 g/dL (3.5-5.0); Alkaline Phosphatase 69 U/L (39-117); Anion Gap 13 (12-20); Aspartate Amino Transferase 13 U/L (5-37); Bilirubin Direct 0.5 mg/dL (0.0-0.5); Bilirubin Total 1.4 mg/dL (0.0-1.0); Blood Urea Nitrogen 17 mg/dL (9-16); Calcium 9.1 mg/dL (8.4-10.2); Carbon Dioxide 23 mmol/L (22-29); Chloride 105 mmol/L (96-108); Creatinine Clr Calc Pharmacy 96.3; Estimated Glomerular Filt Rate > 60; Glucose Random 171 mg/dL (60-115); Lipase 23 U/L (8-78); Potassium 3.8 mmol/L (3.3-5.1); Sodium 137 mmol/L (135-145); Total Protein 6.4 g/dL (6.5-8.0)
--- NOTE | 2022-01-05 00:09 | ED_ITS ---
HPI - Abdominal Pain General Chief Complaint: Abdominal Pain Stated Complaint: feels unwell, unsure why Time Seen by Provider: 01/05/22 00:09 Source: patient Mode of arrival: ambulatory Limitations: no limitations History of Present Illness HPI narrative: Patient with chronic upper abdominal pain nausea weight loss for last 6 months with increased stress at home been investigated in detail by ophthalmic nurse had endoscopy and capsule study 12/29 plan to have MRI next week so for diagnosis been made as gastritis biopsies and colonoscopy are negative for cancer patient comes here for further workup as he lives alone and unable to eat much as has no appetite. Patient lives alone increased stresses at home mother with terminal illness patient does have poor sleep started on dicyclomine by Bedspread Cutter Related Data Home Medications Medication Instructions Recorded Confirmed dicyclomine 20 mg tablet 20 mg PO DAILY 12/14/21 12/29/21 Previous Rx's Medication Instructions Recorded atenolol 25 mg tablet 25 mg PO DAILY 90 days #90 tabs 02/01/21 lisinopril 20 mg tablet 20 mg PO DAILY 90 days #90 tabs 02/01/21 bisacodyl 10 mg/30 mL enema (Fleet 10 mg (30 mL) NE DAILY PRN 09/28/21 Bisacodyl) constipation #100 mL omeprazole 40 mg capsule,delayed 40 mg PO DAILY 30 days #30 caps 10/27/21 release bisacodyl 5 mg tablet,delayed 10 mg PO ONCE 1 day #2 tabs 12/15/21 release (Dulcolax (bisacodyl)) polyethylene glycol 3350 17 238 g PO ONCE 1 day #238 grams 12/15/21 gram/dose oral powder (Miralax) bisacodyl 5 mg tablet,delayed 10 mg PO ONCE 1 day #2 tabs 12/26/21 release (Dulcolax (bisacodyl)) polyethylene glycol 3350 17 238 g PO ONCE 1 day #238 grams 12/26/21 gram/dose oral powder (Miralax) sucralfate 100 mg/mL oral 10 ml PO BID gastric irritation 01/01/22 suspension #600 mL Allergies Allergy/AdvReac Type Severity Reaction Status Date / Time atorvastatin [Lipitor] Allergy Unknown Unknown Verified 01/04/22 20:51 simvastatin Allergy Unknown Unknown Verified 01/04/22 20:51 Review of Systems Review of Systems Yes all other systems are reviewed and are negative PMFSH Past Medical History Medical History Adult general medical exam BPH (benign prostatic hyperplasia) Concussion GERD (gastroesophageal reflux disease) [place] syndrome Hypercholesterolemia Hypertension Jejunitis Negative depression screening Obstructive sleep apnea Tubular adenoma of colon Type 2 diabetes mellitus with hyperglycemia Surgical History History of colonoscopy History of removal of cyst Hx of knee surgery Family History Family History Father Diabetes CVD (cardiovascular disease) Mother Stroke Sister Cancer Social History Social History Housing: House Alcohol intake: current Alcohol intake frequency: holidays/special occasions only Patient Tobacco Use Status: Never used Tobacco e-Cigarette/Vaping Use: Never Used Advance Directives: No Advance Directives Information Provided: Yes service: No Current occupational status: employed and retired Cognitive needs: No Hearing needs: No Vision needs: Yes Physical Exam ED Vital Signs: Vital Signs - 24 hr 01/04/22 20:51 01/05/22 01:21 Temperature 98 F Pulse Rate 69 54 Respiratory Rate 18 18 Blood Pressure 164/76 H 161/80 H Pulse Oximetry 96 96 Oxygen Delivery Method Room Air Room Air BMI result Body Mass Index 24.3 Appearance: Alert. Oriented X3. No acute distress. Eyes: PERRLA, No Nystagmus no pallor or icterus ENT: Pharynx normal. Oral Mucosa moist Neck: Normal inspection. Neck supple. CVS: Normal heart rate and rhythm. Pulses normal. Respiratory: No respiratory distress. Equal air entry bilateral, no wheezing/rales/rhonchi Abdomen: Soft, epigastric tenderness+ Bowel sounds are present, no mass palpable, no CVA tenderness Skin: Skin warm and dry. Normal skin color. Normal skin turgor. Extremities: No lower extremity edema. No calf tenderness Neuro: Oriented X 3. No motor deficit. MDM - Abdominal Pain MDM Narrative Medical decision making narrative: Patient with chronic abdominal pain with increased anxiety and stress workup so far is negative for any acute pathology CT scan today also negative labs are stable patient's symptoms likely from IBS patient improved after taking dicyclomine advised to continue dicyclomine and increase the dosage to 2 to 3 times a day and follow-up with ophthalmic nurse Medical Records Attestation: I reviewed the patient's medical records. Lab Data Attestation: I reviewed the patient's lab results. Result diagrams: 01/04/22 20:58 01/04/22 20:58 Labs: Lab Results 01/04/22 01/04/22 Range/Units 20:58 20:58 WBC 7.0 (4.8-10.8) X10*3/uL RBC 4.03 L (4.60-5.80) X10*6/uL Hgb 12.2 L (14.0-18.0) g/dl Hct 35.4 L (42.0-52.0) % MCV 87.8 (80.0-98.0) fL MCH 30.3 (27.0-33.0) pg MCHC 34.5 (31.0-36.0) g/dl RDW 13.4 (11.0-16.0) % Plt Count 208 (160-400) X10*3/uL MPV 8.4 L (9.4-12.4) fL Immature Gran % (Auto) 0.1 (0.0-0.4) % Neut % (Auto) 61.0 (45-73) % Lymph % (Auto) 25.6 (20-40) % [place] % (Auto) 8.7 (2-11) % Eos % (Auto) 4.0 (0-4) % Baso % (Auto) 0.6 (0-2) % Lymph # (Auto) 1.8 (1.2-4.9) X10*3/uL [place] # (Auto) 0.6 (0.1-1.2) X10*3/uL Eos # (Auto) 0.3 (0.0-0.4) X10*3/uL Baso # (Auto) 0.0 (0.0-0.2) X10*3/uL Abs Immat Gran (auto) 0.01 (0.00-0.03) X10*3/uL Absolute Neuts (auto) 4.3 (2.0-8.3) x10*3/uL Absolute Nucleated RBC 0.000 (0.0-0.012) X10*3/uL Nucleated RBC % (auto) 0.0 (0.0-0.2) /100WBC Sodium 137 (135-145) mmol/L Potassium 3.8 (3.3-5.1) mmol/L Chloride 105 (96-108) mmol/L Carbon Dioxide 23 (22-29) mmol/L Anion Gap 13 (12-20) BUN 17 H (9-16) mg/dL Creatinine 0.69 (0.5-1.4) mg/dL Estim Creat Clear Calc 96.3 Estimated GFR > 60 Random Glucose 171 H D (60-115) mg/dL Calcium 9.1 (8.4-10.2) mg/dL Total Bilirubin 1.4 H (0.0-1.0) mg/dL Direct Bilirubin 0.5 (0.0-0.5) mg/dL AST 13 (5-37) U/L ALT 19 (0-40) U/L Alkaline Phosphatase 69 (39-117) U/L Total Protein 6.4 L (6.5-8.0) g/dL Albumin 3.9 (3.5-5.0) g/dL Lipase 23 (8-78) U/L Discharge Plan Discharge Clinical Impression: Irritable bowel syndrome, Abdominal pain Patient Disposition: Home, Self-Care Instructions: Irritable Bowel Syndrome (ED) Additional Instructions: Drink plenty of fluids Avoid FODMAP food as advised Take dicyclomine 2 to 3 times a day as needed for abdominal cramps Follow with ophthalmic nurse as scheduled for further evaluation and treatment Prescriptions: No Action lisinopril 20 mg tablet 20 mg PO DAILY 90 Days Qty: 90 3RF atenolol 25 mg tablet 25 mg PO DAILY 90 Days Qty: 90 3RF bisacodyl [Dulcolax (bisacodyl)] 5 mg tablet,delayed release (DR/EC) 10 mg PO ONCE 1 Days Qty: 2 0RF Rx Instructions: take orally as directed prior to colonoscopy polyethylene glycol 3350 [Miralax] 17 gram/dose powder 238 g PO ONCE 1 Days Qty: 238 0RF Rx Instructions: take orally as directed prior to colonoscopy bisacodyl [Dulcolax (bisacodyl)] 5 mg tablet,delayed release (DR/EC) 10 mg PO ONCE 1 Days Qty: 2 0RF Rx Instructions: take orally as directed prior to colonoscopy polyethylene glycol 3350 [Miralax] 17 gram/dose powder 238 g PO ONCE 1 Days Qty: 238 0RF Rx Instructions: take orally as directed prior to colonoscopy sucralfate 100 mg/mL suspension 10 ml PO BID MDD 20 ml Qty: 600 2RF Fleet Bisacodyl 10 mg/30 mL enema 10 mg NE DAILY PRN (Reason: constipation) Qty: 100 0RF omeprazole 40 mg capsule,delayed release(DR/EC) 40 mg PO DAILY 30 Days Qty: 30 2RF dicyclomine 20 mg tablet 20 mg PO DAILY
[2022-01-05] MEDS: 0.9 % Sodium Chloride 1,000 ML 999 ML IV (00:42)
[2022-01-05] MEDS: Dicyclomine HCl 10 MG CAPSULE 20 MG PO (00:42)
[2022-01-05] MEDS: Pantoprazole Sodium 40 MG/10 ML VIAL IVPUSH (00:42)
[2022-01-05 01:21] VITALS: BP 161/80; PULSE 54; RESP 18; O2SAT 96
[2022-01-05 03:14] VITALS: BP 143/74; PULSE 61; RESP 14; O2SAT 97
== END 2022-01-05 03:21 | disposition home or self-care (01) ==
PROVIDERS: Emergency Provider Internal Medicine; PCP Internal Medicine
DX: K58.9 Irritable bowel syndrome, unspecified (principal); R10.9 Unspecified abdominal pain; E11.9 Type 2 diabetes mellitus without complications; I10 Essential (primary) hypertension; E78.00 Pure hypercholesterolemia, unspecified
CPT/HCPCS: 36415; 74176; 80048; 80076; 83690; 85025; 96361; 96374; 99284

== ENCOUNTER 2022-01-08 09:10 | Outpatient (REF) | payer MEDICARE, BC, SELFPAY ==
--- NOTE | ~2022-01-08 | MR_ITS ---
EXAMINATION: MR OF THE ABDOMEN AND PELVIS WITH AND WITHOUT CONTRAST CLINICAL INFORMATION: Noninfective gastroenteritis and colitis, unspecified. History of Crohn's disease. COMPARISON: Previous CT of the abdomen and pelvis most recent from 01/05/2022. TECHNIQUE: Sagittal, axial and coronal sequences through the abdomen and pelvis following 1.5 L oral Breeza contrast and with and without 7.5 mL intravenous Gadavist contrast. FINDINGS: The stomach is well distended and normal. The small bowel is normal. No wall thickening, enhancement, dilatation, stricture or focal small bowel lesion is seen. There is diverticulosis of the colon. No evidence of colitis or diverticulitis is seen. The rectum is normal. The appendix is normal. The lung bases are clear. The liver is normal in size, shape and signal. No focal liver lesion. Normal gallbladder. No intrahepatic or extrahepatic biliary duct dilatation. The pancreas is normal. The main pancreatic duct is normal. The spleen is normal. The adrenal glands are normal. There are small left renal peripelvic cysts. The kidneys are otherwise normal. The bladder is normal. The prostate gland does not appear enlarged. Vascular structures are normal. No ascites or adenopathy is noted. There are small bilateral inguinal hernias containing fat. There are degenerative changes of the spine. MR/MR pelvis wo/w con IMPRESSION: Diverticulosis of the colon. Otherwise, unremarkable MR enterography exam. Small left renal peripelvic cysts.
--- NOTE | ~2022-01-08 | MR_ITS ---
EXAMINATION: MR OF THE ABDOMEN AND PELVIS WITH AND WITHOUT CONTRAST CLINICAL INFORMATION: Noninfective gastroenteritis and colitis, unspecified. History of Crohn's disease. COMPARISON: Previous CT of the abdomen and pelvis most recent from 01/05/2022. TECHNIQUE: Sagittal, axial and coronal sequences through the abdomen and pelvis following 1.5 L oral Breeza contrast and with and without 7.5 mL intravenous Gadavist contrast. FINDINGS: The stomach is well distended and normal. The small bowel is normal. No wall thickening, enhancement, dilatation, stricture or focal small bowel lesion is seen. There is diverticulosis of the colon. No evidence of colitis or diverticulitis is seen. The rectum is normal. The appendix is normal. The lung bases are clear. The liver is normal in size, shape and signal. No focal liver lesion. Normal gallbladder. No intrahepatic or extrahepatic biliary duct dilatation. The pancreas is normal. The main pancreatic duct is normal. The spleen is normal. The adrenal glands are normal. There are small left renal peripelvic cysts. The kidneys are otherwise normal. The bladder is normal. The prostate gland does not appear enlarged. Vascular structures are normal. No ascites or adenopathy is noted. There are small bilateral inguinal hernias containing fat. There are degenerative changes of the spine. MR/MR abdomen wo/w con IMPRESSION: Diverticulosis of the colon. Otherwise, unremarkable MR enterography exam. Small left renal peripelvic cysts.
== END 2022-01-08 09:11 | disposition home or self-care (01) ==
LOC: HO.MRI 09:10
PROVIDERS: Visit Provider Internal Medicine Gastroenterology
DX: K52.9 Noninfective gastroenteritis and colitis, unspecified (principal); K50.00 Crohn's disease of small intestine without complications; R63.4 Abnormal weight loss
CPT/HCPCS: 72197; 74183; A9585

== ENCOUNTER → 2022-01-12 07:26 | Outpatient (REF) | payer MEDICARE, BC, SELFPAY ==
--- NOTE | ~2022-01-12 | NM_ITS ---
EXAMINATION: NM RADIONUCLIDE SOLID FOOD GASTRIC EMPTYING 4-HOUR STUDY CLINICAL INFORMATION: Early satiety. COMPARISON: MR abdomen 01/08/2022. TECHNIQUE: A meal consisting of 3 oz of Egg Beaters brand tagged with 1 mCi Tc-99m Sulfur Colloid, 4 oz water and 1 slice of toast with jelly was administered orally to the patient. Images were obtained using a dual head gamma camera in the anterior and posterior projections over of the stomach immediately post ingestion and at hourly intervals up to 4 hours post ingestion. The anterior and posterior counts at each time interval were averaged using the geometric mean and expressed as percentage of the immediate post ingestion counts. FINDINGS: There is good visualization of activity in the stomach immediately post ingestion. As the study progresses, there is good clearance of activity from the stomach and visualization of progressively increasing small bowel activity. By the end of the study, there is almost no retention noted in the stomach. Retention in the stomach at each time interval was: 1 hour 36% (normal 37%-90%) 2 hours 16% (normal 30%-60%) 3 hours 8% 4 hours 3% (normal 0%-10%) NM/NM gastric emptying study IMPRESSION: Normal 4-hour solid food gastric emptying study.
== END ==
LOC: HO.NUCMED 07:26
PROVIDERS: Visit Provider Internal Medicine Gastroenterology
DX: R68.81 Early satiety (principal); R63.4 Abnormal weight loss; K52.9 Noninfective gastroenteritis and colitis, unspecified
CPT/HCPCS: 78264; A9541

== ENCOUNTER → 2022-01-22 13:41 | Outpatient (BNVA) | payer MEDICARE, BC, SELFPAY | PROVIDERS: PCP Internal Medicine; Visit Provider Dietitian, Registered | DX: R63.4 Abnormal weight loss (principal); Z68.23 Body mass index [BMI] 23.0-23.9, adult; E11.65 Type 2 diabetes mellitus with hyperglycemia; K50.00 Crohn's disease of small intestine without complications; Z71.3 Dietary counseling and surveillance | CPT/HCPCS: 97802 ==

== ENCOUNTER 2022-01-26 12:16 | Outpatient (REF) | payer MEDICARE, BC, SELFPAY ==
--- NOTE | ~2022-01-26 | XR_ITS ---
EXAMINATION: XR CHEST CLINICAL INFORMATION: R63.4 - Abnormal weight loss COMPARISON: Chest radiographs 06/18/2019, 02/03/2016 TECHNIQUE: 2 views of the chest were obtained. FINDINGS: There is mild hyperinflation. The lungs are clear. No visible mass or airspace opacity or effusion. The costophrenic sulci are clear. The heart is normal in size. The hilar and mediastinal contours are normal. There are multilevel changes thoracic spine. XR/XR chest 2V IMPRESSION: Lungs clear. Mild hyperinflation.
[2022-01-26 14:27] LABS: Appearance Urine CLEAR; Color Urine YELLOW; Glucose Urine UA 250 MG/DL (NEG); Leukocyte Esterase Urine NEG (NEG); Nitrite Urine NEG (NEG); Specific Gravity - Urine >= 1.030 (1.005-1.025); Urine Blood NEG (NEG); Urine Ketones NEG (NEG); Urine Protein NEG (NEG-TRACE)
[2022-01-26 14:40] LABS: Calcium Oxalate Crystals Urine 2+ /LPF; Mucus Urine 1+ /LPF
[2022-01-26 14:41] LABS: RBC Urine 0 /HPF (0); WBC Urine 0 /HPF (0-4)
== END 2022-01-26 12:17 | disposition home or self-care (01) ==
LOC: HO.XRAY 12:16
PROVIDERS: PCP Internal Medicine; Visit Provider Internal Medicine
DX: R63.4 Abnormal weight loss (principal); R35.0 Frequency of micturition
CPT/HCPCS: 71046; 81001

== ENCOUNTER 2022-02-14 09:29 | Outpatient (REF) | payer MEDICARE, BC, SELFPAY ==
[2022-02-14 09:48] LABS: MANUAL DIFF FLAG NO
[2022-02-14 10:33] LABS: Hematocrit 36.5 % (42.0-52.0); Hemoglobin 12.2 g/dl (14.0-18.0); Mean Corpuscular HGB Conc 33.4 g/dl (31.0-36.0); Mean Corpuscular Volume 89.9 fL (80.0-98.0); Mean Platelet Volume 8.9 fL (9.4-12.4); Neutrophils Percent Auto 66.9 % (45-73); Platelet Count 231 X10*3/uL (160-400); Red Blood Count 4.06 X10*6/uL (4.60-5.80); Red Cell Distribution Width 13.7 % (11.0-16.0); White Blood Count 6.5 X10*3/uL (4.8-10.8)
[2022-02-14 10:34] LABS: Basophils Absolute Auto 0.1 X10*3/uL (0.0-0.2); Basophils Percent Auto 0.9 % (0-2); Eosinophils Absolute Auto 0.1 X10*3/uL (0.0-0.4); Imm Gran Abs Auto 0.01 X10*3/uL (0.00-0.03); Imm Gran Pct Auto 0.2 % (0.0-0.4); Lymphocytes Absolute Auto 1.4 X10*3/uL (1.2-4.9); Lymphocytes Percent Auto 21.6 % (20-40); Monocytes Absolute Auto 0.6 X10*3/uL (0.1-1.2); Monocytes Percent Auto 8.4 % (2-11); Neutrophils Absolute Auto 4.4 x10*3/uL (2.0-8.3)
[2022-02-14 10:46] LABS: Estimated Average Glucose 134 mg/dL; Hemoglobin A1c % 6.3 %
[2022-02-14 11:09] LABS: Anion Gap 9 (12-20); Blood Urea Nitrogen 16 mg/dL (9-16); Carbon Dioxide 29 mmol/L (22-29); Chloride 106 mmol/L (96-108); Estimated Glomerular Filt Rate > 60; Glucose Random 142 mg/dL (60-115); Potassium 3.7 mmol/L (3.3-5.1); Sodium 140 mmol/L (135-145)
== END 2022-02-14 09:30 | disposition home or self-care (01) ==
LOC: HO.LAB 09:29
PROVIDERS: PCP Internal Medicine; Visit Provider Surgery
DX: R10.9 Unspecified abdominal pain (principal); E11.65 Type 2 diabetes mellitus with hyperglycemia; I10 Essential (primary) hypertension; G47.33 Obstructive sleep apnea (adult) (pediatric); K40.90 Unilateral inguinal hernia, without obstruction or gangrene, not specified as recurrent; K50.00 Crohn's disease of small intestine without complications; D64.9 Anemia, unspecified; R63.4 Abnormal weight loss; Z99.89 Dependence on other enabling machines and devices
CPT/HCPCS: 36415; 80048; 83036; 84134; 85025; 99202

== ENCOUNTER → 2022-02-21 08:58 | Outpatient (BNVA) | payer MEDICARE, BC, SELFPAY | PROVIDERS: PCP Internal Medicine; Visit Provider Surgery | DX: K40.90 Unilateral inguinal hernia, without obstruction or gangrene, not specified as recurrent (principal); N40.1 Benign prostatic hyperplasia with lower urinary tract symptoms; R35.0 Frequency of micturition; G47.33 Obstructive sleep apnea (adult) (pediatric); I10 Essential (primary) hypertension; E78.00 Pure hypercholesterolemia, unspecified; S06.0X9D Concussion with loss of consciousness of unspecified duration, subsequent encounter; Z86.711 Personal history of pulmonary embolism; Z86.718 Personal history of other venous thrombosis and embolism | CPT/HCPCS: 99212 ==

== ENCOUNTER → 2022-02-23 11:47 | Outpatient (BNVA) | payer MEDICARE, BC, SELFPAY | PROVIDERS: PCP Internal Medicine; Visit Provider Dietitian, Registered | DX: R63.4 Abnormal weight loss (principal); Z68.22 Body mass index [BMI] 22.0-22.9, adult; E11.65 Type 2 diabetes mellitus with hyperglycemia; K50.00 Crohn's disease of small intestine without complications; Z71.3 Dietary counseling and surveillance | CPT/HCPCS: 97803 ==

== ENCOUNTER 2022-04-15 17:08 | Inpatient (IN) | payer MEDICARE, BC, SELFPAY ==
--- NOTE | ~2022-04-15 | MR_ITS ---
EXAMINATION: MR BRAIN WITHOUT AND WITH CONTRAST CLINICAL INFORMATION: History of pancreatic cancer. COMPARISON: CTA head 04/15/2022.. TECHNIQUE: Multiplanar, multisequence imaging of the brain was performed before and after the intravenous administration of 6.5 mL of Gadavist. FINDINGS: Several small foci of acute infarction are seen within the right middle cerebral artery vascular territory with confluent area of infarction seen within the right parietal lobe and additional foci seen within the right frontal lobe and operculum. A few small foci of acute infarction are also noted within the left parietal lobe. There is mild cytotoxic edema in the region of infarction but no significant mass effect is seen. The ventricles are normal in size without hydrocephalus. On the postcontrast images a few small foci of enhancement are noted within the regions of infarction compatible with blood brain barrier breakdown. There is no mass or extra-axial fluid collection. Mild T2/FLAIR hyperintensity are seen within the white matter, most typical of chronic microangiopathy. A small chronic lacunar infarct is seen within the right cerebellum. The major arterial flow voids are preserved at the skull base. The orbital contents appear normal. MR/MR head/brain wo/w con IMPRESSION: Several small focus of acute infarction seen in the right middle cerebral artery vascular territory with confluent area of infarction seen in the right parietal lobe. Small acute infarcts also noted in the left parietal lobe. No evidence of hemorrhage or significant mass effect. Mild enhancement within some of the regions of infarction most likely represents blood brain barrier breakdown. No evidence of intracranial mass.
--- NOTE | ~2022-04-15 | XR_ITS ---
EXAMINATION: XR CHEST CLINICAL INFORMATION: Weakness, slurred speech, rule out pneumonia COMPARISON: 01/26/2022 TECHNIQUE: Frontal view of the chest was obtained. FINDINGS: No acute finding. No infiltrate is seen. There is no effusion. The lung chua are grossly clear. Catheter overlying the superior vena cava. There is no pneumothorax. The cardiac silhouette is comparable. The hilar structures are comparable to previous. XR/XR chest 1V IMPRESSION: No acute finding.
--- NOTE | ~2022-04-15 | CT_ITS ---
EXAMINATION: CT ANGIOGRAM HEAD CT ANGIOGRAM NECK CLINICAL INFORMATION: Cerebrovascular accident. Left-sided facial droop. History of pancreatic cancer. COMPARISON: CT head from 04/15/2022 and 08/20/2008. TECHNIQUE: Initial noncontrast shuttle preparation supervisor imaging of the head and neck was performed. Comparison is made with noncontrast head CT from earlier today. Test bolus sequences followed by intravenous administration 70 mL of Omnipaque 350. Helical imaging was performed in the axial plane from the aortic arch to the skull vertex. Delayed postcontrast imaging of the head was also performed. The data was processed at the architectural technologist's workstation for generation of MIP sequences. Angled MIPs and volume rendered reformatted images were also generated at an offline 3D workstation. Stenoses are assessed in accordance with NASCET criteria unless otherwise indicated. This CT examination was performed using dose optimization techniques as appropriate, variously including the following: *Automated exposure control. *Adjustment of mA and/or kV according to patient size (this includes techniques or standardized protocols for targeted exams where dose is matched to indication/reason for exam; i.e. extremities or head). *Use of iterative reconstruction technique. DLP: 1574 mGy-cm FINDINGS: CT Head: No evidence of acute intracranial hemorrhage. Redemonstrated region of lost jauregui-white matter differentiation within the lateral aspect of the right frontal lobe (age indeterminate). Otherwise, there is no evidence of additional edematous territorial infarction. A few foci of hypoattenuation in the periventricular and deep white matter are consistent with mild microangiopathy. Jauregui-white matter differentiation is preserved. Proportional prominence of the ventricles and sulcal spaces. No evidence for obstructive hydrocephalus. No abnormal mass effect or midline shift. No extra-axial fluid collections. No pathologic intra-axial enhancement or regional oligemia. No acute soft tissue or osseous abnormalities. Persistent metopic suture. Mild mucosal thickening of the paranasal sinuses. The mastoid air cells and middle ear cavities are clear. CT Neck: The thyroid gland and remaining cervical soft tissues are within normal limits. Straightening of the normal cervical lordosis. Advanced degenerative disc disease at C5-C6. Moderate degenerative disc disease at all additional cervical levels. Facet and uncovertebral joint arthropathy leads to osseous encroachment on the neural foramina from C3-T1. CT Upper Chest: The visualized lung apices and upper mediastinum are within normal limits. Neck CTA: Aortic Arch: Normal contour and caliber with mild calcific atherosclerotic disease. Four vessel branching pattern with left vertebral artery arising directly from the arch between the left common carotid and left subclavian arteries. Great Vessel Origins: No significant stenosis of the branch origins. Right Common Carotid Artery: No focal stenosis or occlusion. Cervical Right Internal Carotid Artery: Mild calcific atherosclerotic disease of the carotid bulb and proximal internal carotid artery without flow-limiting stenosis. Left Common Carotid Artery: No focal stenosis or occlusion. Cervical Left Internal Carotid Artery: Mild calcific atherosclerotic disease of the carotid bulb and proximal internal carotid artery without flow-limiting stenosis. Cervical Right Vertebral Artery: Mildly dominant. No focal stenosis or occlusion. Cervical Left Vertebral Artery: No focal stenosis or occlusion. Brain CTA: Intracranial Internal Carotid Arteries: Calcific atherosclerotic disease of the intracranial internal carotid arteries without occlusion or flow-limiting stenosis. Right Anterior Cerebral Artery: Normal A1 segment. Mild atherosclerotic irregularities of the distal BASSAM segments. Left Anterior Cerebral Artery: Normal A1 segment. Mild atherosclerotic irregularities of the distal BASSAM segments. Anterior Communicating Artery: Normal. Right Middle Cerebral Artery: Normal M1 segment of the MCA without focal stenosis or occlusion. Mild atherosclerotic irregularities of the distal segments. Left Middle Cerebral Artery: Normal M1 segment of the MCA without focal stenosis or occlusion. Mild atherosclerotic irregularities of the distal segments. Right Vertebral Artery: Moderate calcific atherosclerotic disease of the V4 segment without flow-limiting stenosis. The posterior inferior cerebellar artery is not well opacified; however, there is no CT evidence of acute occlusion. Left Vertebral Artery: Moderate calcific atherosclerotic disease of the V4 segment without flow-limiting stenosis. Normal opacification of the proximal segments of the posterior inferior cerebellar artery. Basilar Artery: Normal without focal stenosis or occlusion. Normal appearance of the proximal superior cerebellar arteries. Right Posterior Cerebral Artery: Normal P1 segment. Normal opacification of the distal JAVASCRIPT FRONT END DEVELOPER segments. Left Posterior Cerebral Artery: Normal P1 segment. Normal opacification of the distal JAVASCRIPT FRONT END DEVELOPER segments. Normal opacification of the superior sagittal, straight, transverse, and sigmoid sinuses. CT/CT angio head neck IMPRESSION: 1. No evidence of acute intracranial hemorrhage. 2. Redemonstrated region of lost jauregui-white matter differentiation within the lateral aspect of the right frontal lobe (age indeterminate). No evidence of additional acute edematous territorial infarction. 3. CTA of the head and neck without proximal occlusion or flow-limiting stenosis. 4. Mild underlying microangiopathy and generalized cerebral volume loss. This critical result was discussed with Dr. Bean at 00:10 on 04/16/2022 and it was ascertained that the content and urgency of the report was understood at the time of direct communication.
--- NOTE | ~2022-04-15 | CT_ITS ---
EXAMINATION: CT HEAD WITHOUT CONTRAST (STROKE PROTOCOL) CLINICAL INFORMATION: Stroke protocol. Left-sided facial droop COMPARISON: 08/20/2008. TECHNIQUE: Contiguous axial imaging was performed from the skull base to vertex without intravenous administration of contrast. This CT examination was performed using dose optimization techniques as appropriate, variously including the following: *Automated exposure control *Adjustment of mA and/or kV according to patient size (this includes techniques or standardized protocols for targeted exams where dose is matched to indication/reason for exam; i.e. extremities or head) *Use of iterative reconstruction technique DLP: 739 mGy-cm FINDINGS: There is no midline shift. There is no mass effect. There is no hemorrhage. The basal cisterns appear patent. The posterior fossa is grossly within normal limits. No extra-axial collection is seen. There is an abnormal area of decreased attenuation in the parietal white matter on the right. This is new from previous. Measures approximately 2.9 x 2.7 cm. Could represent an area of infarct or edema. No mass effect is seen associated. Cannot exclude a vascular malformation. The esquivel-white matter differentiation appears preserved. Grossly clear sinuses on the bone windows. CT/CT head for stroke IMPRESSION: Compared with 2009 cm there is a new area of decreased attenuation in the parietal white matter on the right. This could represent focal infarction. Underlying lesion or vascular malformation would be a consideration. No mass effect is seen and there is no hemorrhage. No midline shift. The esquivel-white matter differentiation is felt to be preserved Recommend MRI to further evaluate This critical result was discussed with Dr. Ojeda at 5:37 PM hours on 04/15/2022. It was ascertained that the content and urgency of the report was understood at the time of direct communication.
--- NOTE | 2022-04-15 17:15 | ECG_ITS ---
Test Reason : STROKE SYMPTOMS Blood Pressure : / mmHG Vent. Rate : 068 BPM Atrial Rate : 068 BPM P-R Int : 148 ms QRS Dur : 144 ms QT Int : 446 ms P-R-T Axes : 033 -25 119 degrees QTc Int : 474 ms Normal sinus rhythm Left bundle branch block Abnormal ECG When compared with ECG of 04-FEB-2016 08:35, Left bundle branch block is now Present Referred By: Zander Ojeda Electronically Signed By:SOPHIE LEIJA
[2022-04-15 17:28] VITALS: BP 91/58; BP 96/50; PULSE 71; PULSE 81; RESP 16; TEMP 36.8; O2SAT 98; O2SAT 99; BMI 22.6
[2022-04-15 17:39] LABS: Glucose, Whole Blood 113 mg/dL (60-115)
[2022-04-15 17:58] LABS: Basophils Absolute Auto 0.1 X10*3/uL (0.0-0.2); Basophils Percent Auto 0.7 % (0-2); Eosinophils Absolute Auto 0.1 X10*3/uL (0.0-0.4); Eosinophils Percent Auto 0.7 % (0-4); Hemoglobin 10.6 g/dl (14.0-18.0); Imm Gran Pct Auto 3.4 % (0.0-0.4); Lymphocytes Absolute Auto 2.2 X10*3/uL (1.2-4.9); Lymphocytes Percent Auto 12.5 % (20-40); MANUAL DIFF FLAG SCAN; Mean Corpuscular HGB Conc 34.2 g/dl (31.0-36.0); Mean Corpuscular Hemoglobin 30.5 pg (27.0-33.0); Mean Corpuscular Volume 89.1 fL (80.0-98.0); Mean Platelet Volume 8.5 fL (9.4-12.4); Monocytes Absolute Auto 1.6 X10*3/uL (0.1-1.2); Neutrophils Absolute Auto 13.1 x10*3/uL (2.0-8.3); Neutrophils Percent Auto 73.7 % (45-73); Platelet Count 227 X10*3/uL (160-400); Red Blood Count 3.48 X10*6/uL (4.60-5.80); Red Cell Distribution Width 13.5 % (11.0-16.0); SCAN SMEAR FLAG 1; White Blood Count 17.7 X10*3/uL (4.8-10.8)
[2022-04-15 18:00] LABS: INTERNATIONAL NORM RATIO 1.2 (0.9-1.1); Prothrombin Time 14.1 SEC (10.0-13.1)
[2022-04-15 18:02] LABS: Partial Thromboplastin Time 27.5 SEC (26.0-36.4)
[2022-04-15 18:07] LABS: Stroke Lab Use COMPLETE
[2022-04-15 18:13] VITALS: BP 91/46; PULSE 68; RESP 12; TEMP 36.9; O2SAT 98
[2022-04-15] MEDS: 0.9 % Sodium Chloride 1,000 ML 999 ML IV (18:13)
[2022-04-15 18:19] LABS: SLIDE REVIEW VERIFIED
[2022-04-15 18:21] LABS: Lactic Acid 1.8 mmol/L (0.5-2.0)
[2022-04-15 18:26] LABS: Alanine Aminotransferase 42 U/L (0-40); Albumin Level 3.3 g/dL (3.5-5.0); Alkaline Phosphatase 137 U/L (39-117); Anion Gap 15 (12-20); Aspartate Amino Transferase 23 U/L (5-37); Bilirubin Direct 0.3 mg/dL (0.0-0.5); Bilirubin Total 0.7 mg/dL (0.0-1.0); Blood Urea Nitrogen 13 mg/dL (9-16); Calcium 8.7 mg/dL (8.4-10.2); Carbon Dioxide 26 mmol/L (22-29); Chloride 105 mmol/L (96-108); Creatinine Clr Calc Pharmacy 113.4; Estimated Glomerular Filt Rate > 60; Ethanol < 10 mg/dL; Glucose Random 118 mg/dL (60-115); Lipase 97 U/L (8-78); Potassium 3.1 mmol/L (3.3-5.1); Sodium 143 mmol/L (135-145); Total Protein 5.6 g/dL (6.5-8.0)
[2022-04-15 18:33] LABS: Troponin-I High Sensitivity 11.4 ng/L (<3.5-35.0)
--- NOTE | 2022-04-15 19:00 | ED_ITS ---
HPI - Neuro Symptoms/Deficit General Chief Complaint: Stroke Stated Complaint: HYPOTENSION, STROKE LIKE SYMPTOMS Time Seen by Provider: 04/15/22 17:14 Source: patient and family ( Sister, Alana) Mode of arrival: EMS Limitations: no limitations History of Present Illness HPI Narrative: 71-year-old male brought to emergency department as a stroke alert. The patient states that he was talking to 2 people in his kitchen when his speech became slurred. He states that he did not have any difficulty finding words but his speech was not sounding right to him or to the people he was talking with. The incident occurred around 16:25 hours. The symptoms lasted for approximately 3-5 minutes and then resolved. The patient states he had a similar episode on Saturday ( 7 days prior ). On presentation to the emergency department, the patient's speech was normal, his neurologic exam was unremarkable. He was sent directly to CT scan from the cardiology physician assistant stretcher. The patient states that he has been tired over the past week. The patient was recently diagnosed with pancreatic cancer metastatic to the liver on 03/02/2022. He had his 1st episode of chemotherapy 2 weeks prior. He states that he had a CT scan of the chest on 03/17/2022 and was found to have incidental pulmonary embolism and is currently taking Eliquis 5 mg twice a day. He states that he fell out of bed approximately 1 week prior but did not have any injuries. He states that over the past week he has noticed rhinorrhea and 1 episode of diarrhea. He denied fever, chills, sore throat, cough, chest pain, shortness of breath, nausea, vomiting, frequency, urgency, dysuria, black stools, bloody stools. Onset (ago): hour(s) Time: 14:25 Last Observed Normal: 14:25 Timing confirmed by: family member Location: speech ( dysarthric) and left face ( old according to sister) History of same: Yes ( 1 week prior) Severity: moderate Relieving factors: none Exacerbating factors: none Context: sudden onset On Anticoagulants: Yes ( Eliquis) Treatments Prior to Arrival: none Related Data Previous Rx's Medication Instructions Recorded omeprazole 40 mg capsule,delayed 40 mg PO DAILY 30 days #30 caps 10/27/21 release sucralfate 100 mg/mL oral 10 ml PO BID gastric irritation 01/01/22 suspension #600 mL budesonide 3 mg 9 mg PO DAILY 30 days #90 ea 01/09/22 capsule,delayed,extended release Ensure plant based vanilla flavor #270 ea 01/23/22 3 a day for 3 months (total of 29,700 ml/month) atenolol 25 mg tablet 25 mg PO DAILY 90 days #90 tabs 02/02/22 lisinopril 20 mg tablet 20 mg PO DAILY 90 days #90 tabs 02/02/22 Diabetic shoes #1 ea 02/13/22 Allergies Allergy/AdvReac Type Severity Reaction Status Date / Time atorvastatin [Lipitor] Allergy Unknown Unknown Verified 02/21/22 09:03 simvastatin Allergy Unknown Unknown Verified 02/21/22 09:03 Review of Systems Review of Systems: Yes all other systems are reviewed and are negative [facility] Past Medical History [facility] Narrative: Past medical history: Diabetes mellitus, hypertension, pancreatic cancer me tastatic to the liver diagnosed 03/02/2022 1st chemotherapy 2 weeks prior, pulmonary embolism diagnosed 03/17/2022, hiatal hernia, right inguinal hernia, Crohn's disease. Past surgical history: None. Social history: He denies tobacco use, he denies alcohol use. He is taking THC tinctures to help with his appetite Medical History Adult general medical exam BPH (benign prostatic hyperplasia) Concussion GERD (gastroesophageal reflux disease) [place] syndrome Hypercholesterolemia Hypertension Jejunitis Negative depression screening Obstructive sleep apnea Tubular adenoma of colon Type 2 diabetes mellitus with hyperglycemia Surgical History History of colonoscopy History of removal of cyst Hx of knee surgery Family History Family History Father Diabetes CVD (cardiovascular disease) Mother Stroke Sister Cancer Social History Social History Housing: House Alcohol intake: current Alcohol intake frequency: does not drink Patient Tobacco Use Status: Never used Tobacco e-Cigarette/Vaping Use: Never Used Use of substances other than those prescribed or required for medical reasons: No Advance Directives: No Advance Directives Information Provided: No service: No Current occupational status: employed and retired Cognitive needs: No Hearing needs: No Vision needs: Yes Physical Exam Vital Signs: Vital Signs: Last Vital Signs Temp 98.4 F 04/15/22 18:13 Pulse 68 04/15/22 18:13 Resp 12 04/15/22 18:13 BP 91/46 L 04/15/22 18:13 Pulse Ox 98 04/15/22 18:13 O2 Del Method 04/15/22 18:13 BMI result Body Mass Index 22.6 Const: General: cooperative and no acute distress Orientat ion/consciousness: oriented to person and oriented to place Limitations: no limitations HEENT: Head: Yes normal to inspection, Yes normocephalic and Yes atraumatic Ears: external ears normal General nose exam: Normal external nose present Face and sinus: Yes normal facial exam Mouth: Normal oral and palatal mucosa present Throat: Yes posterior oropharynx normal Eyes: General: appearance normal, both eyes and all related structures Pupils: Equal, round and reactive pupils present Neck: Neck: Yes normal visual inspection, Yes no lymphadenopathy, Yes trachea midline and Yes supple Chest: Chest palpation & inspection: normal inspection of the chest and normal palpation of entire chest wall Resp: Effort & Inspection: normal respiratory effort and able to speak in complete sentences Auscultation: clear to auscultation bilaterally Cardio: Rate: regular rate Rhythm: regular rhythm Heart sounds: S1 normal heart sound present, S2 normal heart sound present and no murmurs GI: Inspection: Yes normal to inspection Palpation (GI): Soft to palpation, nontender and no guarding Auscultation: normal bowel sounds : General: Yes no CVA tenderness Back/Spine/Pelvis: Back: no CVA tenderness Skin: General skin exam: no rashes or lesions noted Neuro: General: oriented to person and oriented to place Cranial nerves: Yes CN's II-XII intact bilaterally and Yes Equal, round and reactive pupils present Cognition (Neuro): normal cognition Motor exam (neuro): 5/5 motor strength present throughout Extrem: General: Yes normal to inspection Psych: Appearance: grossly normal Speech and movement: Normal speech and movement present Affect: normal affect Attitude: cooperative Thought process: Normal thought process present Thought content: Normal thought content present Course Course Course Narrative: 71-year-old male who presents emergency department for evaluation of sudden onset of dysarthric speech at 14:25 hours which lasted approximately 5 minutes, he had a similar episode 7 days prior. the patient was recently diagnosed with pancreatic cancer metastatic to the liver on 03/02/2022 and had chemotherapy 2 weeks prior. Vital signs reveal that he was slightly hypotensive with a blood pressure of 96/50 otherwise unremarkable physical examination was normal and his neurologic exam was normal with an NIH stroke scale of 0. 1912: Laboratory [place] [address], anemia with an H&H of 10.6 and 31.0. This is lower than values on 02/14/2022 when his H&H was 12.2 and 36.5-the patient did have chemotherapy 2 weeks prior. Potassium was low 3.1. Troponin was detectable but not elevated 11.4. Radiology evaluation: chest x-ray was unremarkable: CT scan of the brain without IV contrast radiology reading as irena dunne: IMPRESSION: Compared with 2009 cm there is a new area of decreased attenuation in the parietal white matter on the right. This could represent focal infarction. Underlying lesion or vascular malformation would be a consideration. No mass effect is seen and there is no hemorrhage. No midline shift. The esquivel-white matter differentiation is felt to be preserved Recommend MRI to further evaluate Dictated By:Jonathan Alexander MD Patient's neurologic exam was normal and his NIH stroke scale was 0 and is on Eliquis therefore this patient is not a tPA candidate. The right parietal finding on the CT scan is consistent with an old stroke and most likely not rela pamela to today's episode of dysarthric speech. Given the fact that the patient had symptoms earlier in the week and now had symptoms again today, he needs to be admitted for workup of possible stroke versus TIA. The patient is on Eliquis for PE and I did order his evening dose of Eliquis 5 mg and given his low potassium I ordered potassium chloride 40 mEq orally. I will discuss admission with the covering hospitalist. MDM - Neuro Symptoms/Deficit Lab Data Result diagrams: 04/15/22 17:43 04/15/22 17:43 Labs: Lab Results 04/15/22 04/15/22 04/15/22 Range/Units 17:30 17:43 17:43 WBC 17.7 H (4.8-10.8) X10*3/uL RBC 3.48 L (4.60-5.80) X10*6/uL Hgb 10.6 L (14.0-18.0) g/dl Hct 31.0 L (42.0-52.0) % MCV 89.1 (80.0-98.0) fL MCH 30.5 (27.0-33.0) pg MCHC 34.2 (31.0-36.0) g/dl RDW 13.5 (11.0-16.0) % Plt Count 227 (160-400) X10*3/uL MPV 8.5 L (9.4-12.4) fL Immature Gran % (Auto) 3.4 H (0.0-0.4) % Neut % (Auto) 73.7 H (45-73) % Lymph % (Auto) 12.5 L (20-40) % Divide % (Auto) 9.0 (2-11) % Eos % (Auto) 0.7 (0-4) % Baso % (Auto) 0.7 (0-2) % Lymph # (Auto) 2.2 (1.2-4.9) X10*3/uL [place] # (Auto) 1.6 H (0.1-1.2) X10*3/uL Eos # (Auto) 0.1 (0.0-0.4) X10*3/uL Baso # (Auto) 0.1 (0.0-0.2) X10*3/uL Abs Immat Gran (auto) 0.60 H (0.00-0.03) X10*3/uL Absolute Neuts (auto) 13.1 H (2.0-8.3) x10*3/uL Absolute Nucleated RBC 0.000 (0.0-0.012) X10*3/uL Nucleated RBC % (auto) 0.0 (0.0-0.2) /100WBC Smear Tech's Comments VERIFIED PT 14.1 H (10.0-13.1) SEC INR 1.2 H (0.9-1.1) APTT 27.5 (26.0-36.4) SEC Sodium (135-145) mmol/L Potassium (3.3-5.1) mmol/L Chloride (96-108) mmol/L Carbon Dioxide (22-29) mmol/L Anion Gap (12-20) BUN (9-16) mg/dL Creatinine (0.5-1.4) mg/dL Estim Creat Clear Calc Estimated GFR POC Glucose 113 (60-115) mg/dL Random Glucose (60-115) mg/dL Lactic Acid (0.5-2.0) mmol/L Calcium (8.4-10.2) mg/dL Total Bilirubin (0.0-1.0) mg/dL Direct Bilirubin (0.0-0.5) mg/dL AST (5-37) U/L ALT (0-40) U/L Alkaline Phosphatase (39-117) U/L Total Creatine Kinase (38-174) U/L Troponin I High Sens (<3.5-35.0) ng/L Total Protein (6.5-8.0) g/dL Albumin (3.5-5.0) g/dL Lipase (8-78) U/L Ethyl Alcohol mg/dL 04/15/22 04/15/22 04/15/22 Range/Units 17:43 17:43 17:43 WBC (4.8-10.8) X10*3/uL RBC (4.60-5.80) X10*6/uL Hgb (14.0-18.0) g/dl Hct (42.0-52.0) % MCV (80.0-98.0) fL MCH (27.0-33.0) pg MCHC (31.0-36.0) g/dl RDW (11.0-16.0) % Plt Count (160-400) X10*3/uL MPV (9.4-12.4) fL Immature Gran % (Auto) (0.0-0.4) % Neut % (Auto) (45-73) % Lymph % (Auto) (20-40) % Divide % (Auto) (2-11) % Eos % (Auto) (0-4) % Baso % (Auto) (0-2) % Lymph # (Auto) (1.2-4.9) X10*3/uL [place] # (Auto) (0.1-1.2) X10*3/uL Eos # (Auto) (0.0-0.4) X10*3/uL Baso # (Auto) (0.0-0.2) X10*3/uL Abs Immat Gran (auto) (0.00-0.03) X10*3/uL Absolute Neuts (auto) (2.0-8.3) x10*3/uL Absolute Nucleated RBC (0.0-0.012) X10*3/uL Nucleated RBC % (auto) (0.0-0.2) /100WBC Smear Tech's Comments PT (10.0-13.1) SEC INR (0.9-1.1) APTT (26.0-36.4) SEC Sodium 143 (135-145) mmol/L Potassium 3.1 L (3.3-5.1) mmol/L Chloride 105 (96-108) mmol/L Carbon Dioxide 26 (22-29) mmol/L Anion Gap 15 (12-20) BUN 13 (9-16) mg/dL Creatinine 0.58 (0.5-1.4) mg/dL Estim Creat Clear Calc 113.4 Estimated GFR > 60 POC Glucose (60-115) mg/dL Random Glucose 118 H (60-115) mg/dL Lactic Acid 1.8 (0.5-2.0) mmol/L Calcium 8.7 (8.4-10.2) mg/dL Total Bilirubin 0.7 (0.0-1.0) mg/dL Direct Bilirubin 0.3 (0.0-0.5) mg/dL AST 23 D (5-37) U/L ALT 42 H (0-40) U/L Alkaline Phosphatase 137 H D (39-117) U/L Total Creatine Kinase 28 L (38-174) U/L Troponin I High Sens 11.4 (<3.5-35.0) ng/L Total Protein 5.6 L (6.5-8.0) g/dL Albumin 3.3 L (3.5-5.0) g/dL Lipase 97 H (8-78) U/L Ethyl Alcohol < 10 mg/dL NIH Stroke Scale Internal: Initial- Upon Arrival Level of Consciousness: Alert Level of Consciousness Questions: Answers both questions correctly Level of Consciousness Commands: Performs both tasks correctly Best Gaze: Normal Visual: No visual loss Facial Palsy: Normal Motor Arm (Right): No drift Motor Arm (Left): No drift Motor Leg (Right): No drift Motor Leg (Left): No drift Limb Ataxia: Absent Sensory: Normal Best Language: No aphasia Dysarthia: Normal Extinction and Inattention: No abnormality Score: 0 Discharge Plan Discharge Prescriptions: No Action sucralfate 100 mg/mL suspension 10 ml PO BID MDD 20 ml Qty: 600 2RF budesonide 3 mg capsule,delayed,extend.release 9 mg PO DAILY 30 Days Qty: 90 1RF (DME) Ensure plant based vanilla flavor 3 a day for 3 months (total of 29,700 ml/month) See Rx Instructions .Route .MEDSUPPLY Qty: 270 3RF Rx Instructions: As directed lisinopril 20 mg tablet 20 mg PO DAILY 90 Days Qty: 90 3RF atenolol 25 mg tablet 25 mg PO DAILY 90 Days Qty: 90 3RF (DME) Diabetic shoes See Rx Instructions .Route .MEDSUPPLY Qty: 1 0RF Rx Instructions: As directed omeprazole 40 mg capsule,delayed release(DR/EC) 40 mg PO DAILY 30 Days Qty: 30 2RF
[2022-04-15] MEDS: Apixaban 5 MG TABLET PO (19:20)
[2022-04-15] MEDS: Potassium Chloride Packet 20 MEQ PACKET 40 MEQ PO (19:20)
[2022-04-15 19:28] VITALS: BP 104/50; PULSE 81; RESP 12; O2SAT 98
[2022-04-15 19:53] LABS: COVID-19 Test Negative (Negative); IDNOW Serial# 16C4AD1C
--- NOTE | 2022-04-15 20:30 | PM.IMHP ---
History of Present Illness Date of Service: 04/15/22 Chief Complaint: dysarthria 71-year-old male with a past medical history of hypertension, hyperlipidemia, diabetes, recent diagnosis of pancreatic cancer with metastasis to the liver-on chemotherapy, hiatal hernia, Gilbert's syndrome, obstructive sleep apnea, GERD, BPH, Pulmonary embolism on Eliquishistory of concussion; presented to the hospital today with a chief complaint of Slurring of speech. Patient mentioned that around 16:00 he felt that his speech was slurred, lasted for about 4 minutes. Denies any associated lightheadedness dizziness, numbness tingling or focal weakness. Denies any falls or trauma. Reports he has chronic right foot numbness. Denies any nausea vomiting or diarrhea. Review of all other systems is negative except mentioned above ER course: Per ER team patient exam was nonfocal, CT head showed Decreased attenuation in the parietal white matter, likely infarction. Admitted to the hospital for further management PMFSH Medical History Adult general medical exam BPH (benign prostatic hyperplasia) Concussion GERD (gastroesophageal reflux disease) [place]leigh syndrome Hypercholesterolemia Hypertension Jejunitis Negative depression screening Obstructive sleep apnea Tubular adenoma of colon Type 2 diabetes mellitus with hyperglycemia Family History Father Diabetes CVD (cardiovascular disease) Mother Stroke Sister Cancer Surgical History History of colonoscopy History of removal of cyst Hx of knee surgery Social History Housing: House Alcohol intake: current Alcohol intake frequency: does not drink Patient Tobacco Use Status: Never used Tobacco e-Cigarette/Vaping Use: Never Used Use of substances other than those prescribed or required for medical reasons: No Advance Directives: No Advance Directives Information Provided: No service: No Current occupational status: employed and retired Cognitive needs: No Hearing needs: No Vision needs: Yes Meds Allergies Allergy/AdvReac Type Severity Reaction Status Date / Time atorvastatin [Lipitor] Allergy Unknown Unknown Verified 04/15/22 20:39 simvastatin Allergy Unknown Unknown Verified 04/15/22 20:39 Home Medications Medication Instructions Recorded Confirmed Last Taken Type apixaban 5 mg (74 tabs) tablets in 5 mg PO DAILY 04/15/22 04/15/22 04/15/22 History a dose pack (Eliquis DVT-PE Treat 30D Start) ondansetron HCl 8 mg tablet 1 tab PO Q8H PRN nausea 04/15/22 04/15/22 Unknown History prochlorperazine maleate 10 mg 1 tab PO Q6H PRN Nausea 04/15/22 04/15/22 Unknown History tablet Physical Exam Vital Signs and Narrative: Vital Signs: Last Vital Signs Temp 98.4 F 04/15/22 18:13 Pulse 81 04/15/22 19:28 Resp 12 04/15/22 19:28 BP 104/50 L 04/15/22 19:28 Pulse Ox 98 04/15/22 19:28 O2 Del Method 04/15/22 19:28 BMI result Body Mass Index 22.6 Gen: Appears be in no acute distress HEENT: NCAT, Moist mucosa. Pulmonary: Vesicular breath sounds, fair air entry CVS: Normal S1-S2 Abdomen: BS+, Soft, Nontender Extremities: Warm well perfused Neuro: Alert and awake. Oriented x3, cranial nerves intact, speech is clear, sensations equal bilaterally, strength 5/5 throughout Results Labs CBC and Chem 7: 04/15/22 17:43 04/15/22 17:43 Labs: Laboratory Results - last 24 hr 04/15/22 04/15/22 04/15/22 17:30 17:43 17:43 MCV 89.1 MCH 30.5 MCHC 34.2 RDW 13.5 Plt Count 227 MPV 8.5 L Immature Gran % (Auto) 3.4 H Neut % (Auto) 73.7 H Lymph % (Auto) 12.5 L [place] % (Auto) 9.0 Eos % (Auto) 0.7 Baso % (Auto) 0.7 Lymph # (Auto) 2.2 [place] # (Auto) 1.6 H Eos # (Auto) 0.1 Baso # (Auto) 0.1 Abs Immat Gran (auto) 0.60 H Absolute Neuts (auto) 13.1 H Absolute Nucleated RBC 0.000 Nucleated RBC % (auto) 0.0 Smear Tech's Comments VERIFIED PT 14.1 H INR 1.2 H APTT 27.5 Anion Gap Estim Creat Clear Calc Estimated GFR POC Glucose 113 Random Glucose Lactic Acid Calcium Total Bilirubin Direct Bilirubin AST ALT Alkaline Phosphatase Total Creatine Kinase Total Protein Albumin Lipase Ethyl Alcohol COVID-19 (LANIE) COVID-19 Clin Com 04/15/22 04/15/22 04/15/22 17:43 17:43 19:30 MCV MCH MCHC RDW Plt Count MPV Immature Gran % (Auto) Neut % (Auto) Lymph % (Auto) [place] % (Auto) Eos % (Auto) Baso % (Auto) Lymph # (Auto) [place] # (Auto) Eos # (Auto) Baso # (Auto) Abs Immat Gran (auto) Absolute Neuts (auto) Absolute Nucleated RBC Nucleated RBC % (auto) Smear Tech's Comments PT INR APTT Anion Gap 15 Estim Creat Clear Calc 113.4 Estimated GFR > 60 POC Glucose Random Glucose 118 H Lactic Acid 1.8 Calcium 8.7 Total Bilirubin 0.7 Direct Bilirubin 0.3 AST 23 D ALT 42 H Alkaline Phosphatase 137 H D Total Creatine Kinase 28 L Total Protein 5.6 L Albumin 3.3 L Lipase 97 H Ethyl Alcohol < 10 COVID-19 (LANIE) Negative COVID-19 Clin Com See Note Imaging Radiologist's Impressions: Impressions Head CT 04/15/22 17:21 IMPRESSION: Compared with 2009 cm there is a new area of decreased attenuation in the parietal white matter on the right. This could represent focal infarction. Underlying lesion or vascular malformation would be a consideration. No mass effect is seen and there is no hemorrhage. No midline shift. The esquivel-white matter differentiation is felt to be preserved Recommend MRI to further evaluate This critical result was discussed with Dr. Ojeda at 5:37 PM hours on 04/15/2022. It was ascertained that the content and urgency of the report was understood at the time of direct communication. Chest X-Ray 04/15/22 17:26 IMPRESSION: No acute finding. Assessment and Plan (1) TIA (transient ischemic attack): Status: Acute Plan 71-year-old male with a past medical history of hypertension, hyperlipidemia, diabetes, recent diagnosis of pancreatic cancer with metastasis to the liver-on chemotherapy, hiatal hernia, Gilbert's syndrome, obstructive sleep apnea, GERD, BPH, Pulmonary embolism on Eliquishistory of concussion; presented to the hospital today with a chief complaint of Slurring of speech. Symptoms currently resolved. Admitted for possible TIA. TIA: Patient presented with brief episode of slurring of words. Currently resolved. CT scan showed decreased attenuation in the parietal white matter-likely infarction -> age-indeterminate will obtain MRI CT angio head and neck showed no evidence of large vessel occlusion Speech and swallow eval/PT/OT Patient on Eliquis Neurology consult Pancreatic cancer with metastasis to liver: Diagnosed in February. Follows in [place]. On chemotherapy. History of pulmonary embolism: Patient on Eliquis. History of diabetes: Diet controlled. History of hypertension: Hold home antihypertensives for now. Blood pressure currently on the normal side. DVT prophylaxis: Patient on Eliquis Code status: Full code Quality Stroke Does the patient have a stroke diagnosis?: No VTE Prior VTE?: No VTE Risk Level:: Medical - moderate - high VTE Device Contraindication: Treatment Not Indicated VTE Drug Contraindication: N/A - Med Ordered
--- NOTE | 2022-04-15 21:00 | PC.NURSE ---
PT NEUROS INTACT SINCE ARRIVAL, PT STANDING AND PIVOTING TO BEDSIDE COMMOED, USES WALKER AT HOME FOR NEUROPATHY IN R FOOT. WATERY BM, PT STATES IS TYPICAL FOR HIM.
[2022-04-15 21:18] VITALS: BP 108/57; PULSE 73; RESP 19; O2SAT 98
[2022-04-15 21:27] LABS: Glucose, Whole Blood 129 mg/dL (60-115)
[2022-04-15] MEDS: iohexoL 350 MG/ML 100 ML INFUS..BTL IV (23:16)
[2022-04-16] VITALS (8 sets, daily range): BP systolic 107–121; BP diastolic 55–73; PULSE 66–70; RESP 12–18; TEMP 36.8–37.1; O2SAT 94–99
--- NOTE | 2022-04-16 | EEG_ITS ---
This is a 16-channel EEG with an EKG lead. The patient is reported awake and drowsy during the tracing. Background EEG rhythm during wakefulness was 10 to 12 hertz, 5 to 20 microvolt posteriorly, lower amplitude fast anteriorly. The patient transitioned into drowsiness with no significant abnormality. Photic stimulation does not produce any significant abnormality. Hyperventilation is not performed. Cardiac lead does not reveal any significant abnormality. No sharp wave spikes or paroxysmal tendency noted. IMPRESSION: Unremarkable EEG. MD MAKSIM Coronel/KATHY / [id number]
[2022-04-16 06:32] LABS: MANUAL DIFF FLAG NO
--- NOTE | 2022-04-16 06:38 | PC.NURSE ---
I assumed nursing care of Anshu at 2300. he has had an uneventful night - he has slept the majority of the night. He wakes to loud verbal stimuli at which time he is oriented to person, place and time. There is no SOB, respirations are non-labored, RR WNL, no cyanosis, room air sat's WNL. He is taking PO fluids without difficulty. No chest pain. No nausea or vomiting. Anshu is aware that he is admitted to the hospital and is awaiting an inpatient bed assignment.
[2022-04-16 06:51] LABS: Basophils Absolute Auto 0.1 X10*3/uL (0.0-0.2); Basophils Percent Auto 0.6 % (0-2); Eosinophils Absolute Auto 0.1 X10*3/uL (0.0-0.4); Eosinophils Percent Auto 0.6 % (0-4); Hematocrit 28.3 % (42.0-52.0); Hemoglobin 9.7 g/dl (14.0-18.0); Imm Gran Abs Auto 0.38 X10*3/uL (0.00-0.03); Imm Gran Pct Auto 2.7 % (0.0-0.4); Lymphocytes Absolute Auto 1.6 X10*3/uL (1.2-4.9); Lymphocytes Percent Auto 10.9 % (20-40); Mean Corpuscular HGB Conc 34.3 g/dl (31.0-36.0); Mean Corpuscular Volume 90.4 fL (80.0-98.0); Mean Platelet Volume 8.9 fL (9.4-12.4); Monocytes Absolute Auto 1.3 X10*3/uL (0.1-1.2); Neutrophils Absolute Auto 10.9 x10*3/uL (2.0-8.3); Neutrophils Percent Auto 76.2 % (45-73); Platelet Count 215 X10*3/uL (160-400); Red Blood Count 3.13 X10*6/uL (4.60-5.80); Red Cell Distribution Width 13.5 % (11.0-16.0); White Blood Count 14.3 X10*3/uL (4.8-10.8)
[2022-04-16 06:56] LABS: Anion Gap 12 (12-20); Blood Urea Nitrogen 11 mg/dL (9-16); Calcium 8.3 mg/dL (8.4-10.2); Carbon Dioxide 25 mmol/L (22-29); Chloride 108 mmol/L (96-108); Creatinine Clr Calc Pharmacy 126.5; Estimated Glomerular Filt Rate > 60; Glucose Random 102 mg/dL (60-115); Potassium 3.7 mmol/L (3.3-5.1); Sodium 141 mmol/L (135-145)
--- NOTE | 2022-04-16 07:00 | CA_ITS ---
Transthoracic Echocardiogram Patient (Last, First, Middle): Anshu Andino G Gender: Male Date of : 1950 Age: 71 Procedure Date: 04/16/2022 Procedure Type: Transthoracic Echocardiogram Location: ER Height: 173. cm Weight: 68. kg BSA: 1.81 m2 Heart Rate: 64 bpm BP: 118 / 68 mmHg Insurance Underwriting Assistant: EDWARD Referring MD: Rodríguez Workman MD Symptoms: cva Study Quality: Fair ECG Rhythm: Sinus Conclusions: - LVEF difficult to assess due to off axis images as well as poor endocardial definition; possibly about 45-50%. - No obvious valvular pathology seen on this study. - There is a small loculated pericardial effusion overlying the right ventricle. Findings Left Ventricle Normal left ventricular cavity size. There is normal left ventricular wall thickness. Regional wall motion abnormalities can not be excluded due to suboptimal endocardial definition. Diastolic function is normal for age. LVEF difficult to assess due to off axis images as well as poor endocardial definition; possibly about 45-50%. Right Ventricle Normal right ventricular cavity size. There is normal right ventricular systolic function. Atria Both atria are normal in size. Aortic Valve The aortic valve was not well visualized. There is no aortic valve stenosis. There is no aortic valve regurgitation. Mitral Valve The mitral valve appears normal. There is no mitral valve regurgitation. There is no mitral valve stenosis. Pulmonic Valve The pulmonic valve was not well visualized. Tricuspid Valve There is trace tricuspid valve regurgitation. The pulmonary artery systolic pressure is normal. Great Vessels The asc aorta is normal in size. Venous The inferior vena cava is normal in size and collapses less than 50% with inspiration. Pericardium/Pleural There is a small loculated pericardial effusion overlying the right ventricle. Prior Study Comparison Changes noted compared to prior study dated: 06/24/2010. Possibly slight decrease in LVEF. Pericardial effusion not previously reported. Recommendations, Care & Conclusions No obvious valvular pathology seen on this study. Measurements 2D Linear Measurements IVSd: 0.86 0.6-0.9/0.6-1.0 cm LVIDd: 4.78 3.9-5.3/4.2-5.9 cm LVIDd Index: 2.64 2.4-3.2/2.2-3.1 cm/m2 LVIDs: 2.96 2.0-3.6 cm LVPWd: 1.01 0.7-1.1 cm LA Diam: 3.00 2.7-3.8/3.0-4.0 cm LAIDs Index: 1.66 1.5-2.3 cm/m2 LV Mass: 191.98 67-162/88-224 g LV Mass Index: 106.07 43-95/49-115 g/m2 LVOT Diam: 2.10 3.0+(-)1.3 cm 2D Systolic Function EF 4C: 47.50 >55% EF 2C: 60.40 >55% EF BiP: 56.10 >55% Mitral Valve MV Pk E: 0.51 MV PK A: 0.69 MV Decel Time: 343.00 E/A: 0.70 E'Lateral: 8.81 E'Medial: 6.74 E/E' Med: 7.50 E/E' Lat: 5.70 PHT: 100.00 MVA PHT: 2.20 Decel [place]: 1.48 Aortic Valve AoV Pk Michael: 1.83 AoV Mn Michael: 1.37 AoV VTI: 0.35 AoV Pk Grad: 13.00 Aov Mn Grad: 8.00 BENEDICT Cont.VTI: 2.23 LVOT LVOT Pk Michael: 1.16 LVOT Mn Michael: 0.82 LVOT VTI: 0.23 LVOT Pk Grad: 5.00 LVOT Mn Grad: 3.00 LVOT Diam: 2.10 LVOT Area: 3.46 Diastolic Function MV Pk E: 0.51 MV Pk A: 0.69 E/A: 0.70 E'Medial: 6.74 E/E' Med: 7.50 E' Laterial: 8.81 E/E' Lat: 5.70 Right Ventricle TAPSE (mm): 22.30 TVS' Michael: 11.40 Tricuspid Valve RA Press: 8.00 Great Vessels Aorta Sinus of Valsalva: 3.20 2.0-3.5 cm Ao Asc: 2.90 2.1-3.4 cm Pulmonary Valve PV Pk Michael: 1.09 Peak PV Grad: 5.00 Updated in Other Vendor System with Status of Final Kain Cast MD electronically signed on 04/16/2022 5:13:24 PM with status of Final
[2022-04-16 07:05] LABS: Cholesterol 113 mg/dL; HDL Cholesterol 32 mg/dL; LDL Cholesterol Calculated 70 mg/dl; Triglycerides 59 mg/dL
[2022-04-16 07:05] LABS: Appearance Urine Clear; Color Urine Yellow; Glucose Urine UA Negative (Negative); Leukocyte Esterase Urine Negative (Negative); Nitrite Urine Negative (Negative); PH 5.5 (5.0-9.0); Specific Gravity - Urine >= 1.030 (1.005-1.025); Urine Blood Negative (Negative); Urine Ketones Negative (Negative); Urine Protein Negative (Neg-Trace)
[2022-04-16 07:21] LABS: Glucose, Whole Blood 91 mg/dL (60-115)
[2022-04-16 07:35] LABS: Prothrombin Time Whole Bld POC 14.5 sec (11.1-13.5); ~PT, ~INR - Anti Coag Clinic 1.2 (0.9-1.1)
--- NOTE | 2022-04-16 07:39 | PHA.MEDREC ---
Pharmacy Consult ? Medication Reconciliation Pharmacy has completed the medication reconciliation.
[2022-04-16] MEDS: atenoloL 25 MG TABLET PO (08:29)
[2022-04-16] MEDS: Apixaban 5 MG TABLET PO ×2 (08:29→19:11)
[2022-04-16] MEDS: 0.9 % Sodium Chloride Flush 3 ML SYRINGE IVFLUSH ×2 (08:30→17:29)
--- NOTE | 2022-04-16 10:09 | MHC.CM.PN ---
Patient lives alone in a multi family house with his Sister/HCP/Candy living upstairs,; since Chemo in [place] began, a family member has been staying with Patient. Patient receives RN visits r/t PICC flushing and dressing changes (unsure of name of agency/await return call from Candy). Home/resume said services is the goal and CM has initiated and will follow for dc planning. IMM addressed with Primary Contact/Brother/Ashvin @ [phone] and original will be mailed certified letter to him and a copy to be placed on the chart (patient is here with TIA, Slurred speech and a diagnosis of Cognitive and Behavioral Changes). Patient has received Moderna/Covid vax x3 and his PCP is DR. Garcia Po. Patient uses a walker at baseline.
--- NOTE | 2022-04-16 11:59 | PM.NEUROCN ---
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 He said that he could not say what he wanted to say for about 3-4 minutes. He stated that he was alert and awake during that time remembered the event. His sister reported that there was another event when he was spacey and confuse lasting for few minutes. There was no headache or any other focal symptom at this time he was feeling normal stating that his speech was fine. Review of Systems Review of Systems: No recent headache or passing out PMFSH Past Medical History Medical History Adult general medical exam BPH (benign prostatic hyperplasia) Concussion GERD (gastroesophageal reflux disease) Harvey syndrome Hypercholesterolemia Hypertension Jejunitis Negative depression screening Obstructive sleep apnea Tubular adenoma of colon Type 2 diabetes mellitus with hyperglycemia Family History Family History Father Diabetes CVD (cardiovascular disease) Mother Stroke Sister Cancer Surgical History Surgical History History of colonoscopy History of removal of cyst Hx of knee surgery Social History Social History Housing: House Alcohol intake: current Alcohol intake frequency: does not drink Patient Tobacco Use Status: Never used Tobacco e-Cigarette/Vaping Use: Never Used Use of substances other than those prescribed or required for medical reasons: No Advance Directives: No Advance Directives Information Provided: No service: No Current occupational status: retired Cognitive needs: No Hearing needs: No Vision needs: Yes Meds Allergies Allergy/AdvReac Type Severity Reaction Status Date / Time atorvastatin [Lipitor] Allergy Unknown Unknown Verified 04/15/22 20:39 simvastatin Allergy Unknown Unknown Verified 04/15/22 20:39 Active Medications: Current Medications Acetaminophen (Acetaminophen 325 Mg Tablet) 650 mg PO Q6H PRN PRN Reason: Pain, Mild (Pain Scale 1-3) Apixaban (Apixaban 5 Mg Tablet) 5 mg PO BID KURT Last Admin: 04/16/22 08:29 Dose: 5 mg Atenolol (Atenolol 25 Mg Tablet) 25 mg PO DAILY [facility]; Protocol Last Admin: 04/16/22 08:29 Dose: 25 mg Dextrose (Dextrose 50 % 25 Gm/50 Ml Syringe) 25 gm IVPUSH Q15M PRN; Protocol PRN Reason: per Hypoglycemia Standing Ord. Glucose (Glucose Gel 15 Gm Gel..Gram.) 15 gm PO Q15M PRN; Protocol PRN Reason: per Hypoglycemia Standing Ord. Insulin Human Lispro (Insulin Lispro 100 Unit/Ml 3 Ml Vial) 0 unit SUBCUT QIDACHS [facility]; Protocol Last Admin: 04/16/22 07:46 Dose: Not Given Melatonin (Melatonin 3 Mg Tablet) 6 mg PO BEDTIME PRN PRN Reason: Insomnia Ondansetron HCl (Ondansetron Odt 4 Mg Tab.Rapdis) 4 mg TRANSLINGU Q8H PRN PRN Reason: nausea Senna (Sennosides 8.6 Mg Tablet) 17.2 mg PO BEDTIME PRN PRN Reason: Constipation Sodium Chloride (0.9 % Sodium Chloride Flush 3 Ml Syringe) 3 ml IVFLUSH QSHIFT [facility] Last Admin: 04/16/22 08:30 Dose: 3 ml Home Medications Medication Instructions Recorded Confirmed Last Taken Type apixaban 5 mg (74 tabs) tablets in 5 mg PO BID 04/15/22 04/16/22 04/15/22 History a dose pack (Eliquis DVT-PE Treat 30D Start) ondansetron HCl 8 mg tablet 1 tab PO Q8H PRN nausea 04/15/22 04/15/22 Unknown History prochlorperazine maleate 10 mg 1 tab PO Q6H PRN Nausea 04/15/22 04/15/22 Unknown History tablet Physical Exam Vital Signs: Vital Signs: Last Vital Signs Temp 98.4 F 04/15/22 18:13 Pulse 66 04/16/22 11:14 Resp 14 04/16/22 07:17 BP 118/68 04/16/22 11:14 Pulse Ox 99 04/16/22 11:14 O2 Del Method 04/16/22 07:17 BMI result Body Mass Index 22.6 Neuro: Other: He was alert and awake with normal spontaneity of speech fluency comprehension and affect. Face was symmetrical. Visual chua are full. There was no pronator drift. Deep tendon reflexes were 1+ with flexor plantars. Affect was somewhat flat Results Labs CBC & Chem 7: 04/16/22 06:10 04/16/22 06:10 Labs: Short CBC 04/15/22 04/16/22 Range/Units 17:43 06:10 WBC 17.7 H 14.3 H (4.8-10.8) X10*3/uL Hgb 10.6 L 9.7 L (14.0-18.0) g/dl Hct 31.0 L 28.3 L (42.0-52.0) % Plt Count 227 215 (160-400) X10*3/uL BMP 04/15/22 04/16/22 17:43 06:10 Sodium 143 141 Potassium 3.1 L 3.7 Chloride 105 108 Carbon Dioxide 26 25 BUN 13 11 Creatinine 0.58 0.52 Calcium 8.7 8.3 L Cardiac Enzymes 04/15/22 Range/Units 17:43 Total Creatine Kinase 28 L (38-174) U/L Liver Function 04/15/22 Range/Units 17:43 Total Bilirubin 0.7 (0.0-1.0) mg/dL Direct Bilirubin 0.3 (0.0-0.5) mg/dL AST 23 D (5-37) U/L ALT 42 H (0-40) U/L Alkaline Phosphatase 137 H D (39-117) U/L Albumin 3.3 L (3.5-5.0) g/dL Urine 04/16/22 Range/Units 06:53 Urine Color Yellow Urine Appearance Clear Urine pH 5.5 (5.0-9.0) Ur Specific [place] >= 1.030 H (1.005-1.025) Urine Protein Negative (Neg-Trace) mg/dL Urine Glucose (UA) Negative (Negative) mg/dL CT and CTA of brain and neck were reviewed. One right parietal occipital hypodense lesion was noted, probably chronic ischemic. Assessment and Plan (1) TIA (transient ischemic attack): Status: Acute 71 years old man with pancreatic cancer came to hospital with an episode of difficulty speaking. His sister reported that there was another event when he was spacey or confused. Differential diagnosis would include vascular disease but also complex partial seizure disorder. Because of underlying disease, my recommendation is to obtain an MRI of brain for better definition of brain lesion seen on CT scan and an EEG. Procedures Date of Service Date of Service: 04/16/22
--- NOTE | 2022-04-16 12:16 | MHC.SLORD ---
Addendum entered and electronically signed by Catherine Sullivan MA, CCC-[employer] 04/16/22 12:58: D.S. Original Note: Speech Language Pathology Order Status: [employer] checked in with attending hospitalist. MD reported no need for speech language cognition evaluation at this time. MD to cancel order.
--- NOTE | 2022-04-16 12:55 | HO.PM.IMPN ---
Subjective Subjective Date of Service: 04/16/22 Interval History: offers no acute complaints admitted for slurred speech lasting 4-5 minutes, since admission patient has no new neurological symptoms speech is clear denies weakness numbness no visual impairment. 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 Neck no JVD. CVS regular rate rhythm, Respiratory lungs clear to auscultation, no respiratory distress, no wheeze, no rhonchi. Gastrointestinal abdomen soft, nontender, bowel sounds audible, no guarding , no rigidity. Extremities no edema. Neuro nonfocal ,speech clear. Skin no rash psych appropriate affect Objective Data Active Medications Acetaminophen (Acetaminophen 325 Mg Tablet) 650 mg PO Q6H PRN PRN Reason: Pain, Mild (Pain Scale 1-3) Apixaban (Apixaban 5 Mg Tablet) 5 mg PO BID [facility] Last Admin: 04/16/22 08:29 Dose: 5 mg Documented By: LUCI Atenolol (Atenolol 25 Mg Tablet) 25 mg PO DAILY [facility]; Protocol Last Admin: 04/16/22 08:29 Dose: 25 mg Documented By: LUCI Dextrose (Dextrose 50 % 25 Gm/50 Ml Syringe) 25 gm IVPUSH Q15M PRN; Protocol PRN Reason: per Hypoglycemia Standing Ord. Glucose (Glucose Gel 15 Gm Gel..Gram.) 15 gm PO Q15M PRN; Protocol PRN Reason: per Hypoglycemia Standing Ord. Insulin Human Lispro (Insulin Lispro 100 Unit/Ml 3 Ml Vial) 0 unit SUBCUT QIDACHS [facility]; Protocol Last Admin: 04/16/22 07:46 Dose: Not Given Documented By: LUCI Non-Admin Reason: See Note Comments: POC 91 Melatonin (Melatonin 3 Mg Tablet) 6 mg PO BEDTIME PRN PRN Reason: Insomnia Ondansetron HCl (Ondansetron Odt 4 Mg Tab.Rapdis) 4 mg TRANSLINGU Q8H PRN PRN Reason: nausea Senna (Sennosides 8.6 Mg Tablet) 17.2 mg PO BEDTIME PRN PRN Reason: Constipation Sodium Chloride (0.9 % Sodium Chloride Flush 3 Ml Syringe) 3 ml IVFLUSH QSHIFT [facility] Last Admin: 04/16/22 08:30 Dose: 3 ml Documented By: LUCI Labs CBC & Chem 7: 04/16/22 06:10 04/16/22 06:10 Labs: Laboratory Results - last 24 hr 04/15/22 04/15/22 04/15/22 17:30 17:30 17:43 MCV 89.1 MCH 30.5 MCHC 34.2 RDW 13.5 Plt Count 227 MPV 8.5 L Immature Gran % (Auto) 3.4 H Neut % (Auto) 73.7 H Lymph % (Auto) 12.5 L [place] % (Auto) 9.0 Eos % (Auto) 0.7 Baso % (Auto) 0.7 Lymph # (Auto) 2.2 [place] # (Auto) 1.6 H Eos # (Auto) 0.1 Baso # (Auto) 0.1 Abs Immat Gran (auto) 0.60 H Absolute Neuts (auto) 13.1 H Absolute Nucleated RBC 0.000 Nucleated RBC % (auto) 0.0 Smear Tech's Comments VERIFIED PT Whole Blood PT 14.5 H INR Whole Blood INR 1.2 H APTT Anion Gap Estim Creat Clear Calc Estimated GFR POC Glucose 113 Random Glucose Lactic Acid Calcium Magnesium Total Bilirubin Direct Bilirubin AST ALT Alkaline Phosphatase Total Creatine Kinase Total Protein Albumin Triglycerides Cholesterol LDL Cholesterol, Calc HDL Cholesterol Lipase Urine Color Urine Appearance Urine pH Ur Specific [place] Urine Protein Urine Glucose (UA) Urine Ketones Urine Blood Urine Nitrite Ur Leukocyte Esterase Ethyl Alcohol COVID-19 ([facility]ANIE) COVID-19 Clin Com 04/15/22 04/15/22 04/15/22 17:43 17:43 17:43 MCV MCH MCHC RDW Plt Count MPV Immature Gran % (Auto) Neut % (Auto) Lymph % (Auto) [place] % (Auto) Eos % (Auto) Baso % (Auto) Lymph # (Auto) [place] # (Auto) Eos # (Auto) Baso # (Auto) Abs Immat Gran (auto) Absolute Neuts (auto) Absolute Nucleated RBC Nucleated RBC % (auto) Smear Tech's Comments PT 14.1 H Whole Blood PT INR 1.2 H Whole Blood INR APTT 27.5 Anion Gap 15 Estim Creat Clear Calc 113.4 Estimated GFR > 60 POC Glucose Random Glucose 118 H Lactic Acid 1.8 Calcium 8.7 Magnesium Total Bilirubin 0.7 Direct Bilirubin 0.3 AST 23 D ALT 42 H Alkaline Phosphatase 137 H D Total Creatine Kinase 28 L Total Protein 5.6 L Albumin 3.3 L Triglycerides Cholesterol LDL Cholesterol, Calc HDL Cholesterol Lipase 97 H Urine Color Urine Appearance Urine pH Ur Specific [place] Urine Protein Urine Glucose (UA) Urine Ketones Urine Blood Urine Nitrite Ur Leukocyte Esterase Ethyl Alcohol < 10 COVID-19 (LANIE) COVID-19 [employer] 04/15/22 04/15/22 04/16/22 19:30 21:20 06:10 MCV 90.4 MCH 31.0 MCHC 34.3 RDW 13.5 Plt Count 215 MPV 8.9 L Immature Gran % (Auto) 2.7 H Neut % (Auto) 76.2 H Lymph % (Auto) 10.9 L [place] % (Auto) 9.0 Eos % (Auto) 0.6 Baso % (Auto) 0.6 Lymph # (Auto) 1.6 [place] # (Auto) 1.3 H Eos # (Auto) 0.1 Baso # (Auto) 0.1 Abs Immat Gran (auto) 0.38 H Absolute Neuts (auto) 10.9 H Absolute Nucleated RBC 0.000 Nucleated RBC % (auto) 0.0 Smear Tech's Comments PT Whole Blood PT INR Whole Blood INR APTT Anion Gap Estim Creat Clear Calc Estimated GFR POC Glucose 129 H Random Glucose Lactic Acid Calcium Magnesium Total Bilirubin Direct Bilirubin AST ALT Alkaline Phosphatase Total Creatine Kinase Total Protein Albumin Triglycerides Cholesterol LDL Cholesterol, Calc HDL Cholesterol Lipase Urine Color Urine Appearance Urine pH Ur Specific [place] Urine Protein Urine Glucose (UA) Urine Ketones Urine Blood Urine Nitrite Ur Leukocyte Esterase Ethyl Alcohol COVID-19 (LANIE) Negative COVID-19 Clin Com See Note 04/16/22 04/16/22 04/16/22 06:10 06:10 06:53 MCV MCH MCHC RDW Plt Count MPV Immature Gran % (Auto) Neut % (Auto) Lymph % (Auto) [place] % (Auto) Eos % (Auto) Baso % (Auto) Lymph # (Auto) [place] # (Auto) Eos # (Auto) Baso # (Auto) Abs Immat Gran (auto) Absolute Neuts (auto) Absolute Nucleated RBC Nucleated RBC % (auto) Smear Tech's Comments PT Whole Blood PT INR Whole Blood INR APTT Anion Gap 12 Estim Creat Clear Calc 126.5 Estimated GFR > 60 POC Glucose Random Glucose 102 Lactic Acid Calcium 8.3 L Magnesium 2.0 Total Bilirubin Direct Bilirubin AST ALT Alkaline Phosphatase Total Creatine Kinase Total Protein Albumin Triglycerides 59 Cholesterol 113 LDL Cholesterol, Calc 70 HDL Cholesterol 32 Lipase Urine Color Yellow Urine Appearance Clear Urine pH 5.5 Ur Specific [place] >= 1.030 H Urine Protein Negative Urine Glucose (UA) Negative Urine Ketones Negative Urine Blood Negative Urine Nitrite Negative Ur Leukocyte Esterase Negative Ethyl Alcohol COVID-19 (LANIE) COVID-19 Clin Com 04/16/22 07:16 MCV MCH MCHC RDW Plt Count MPV Immature Gran % (Auto) Neut % (Auto) Lymph % (Auto) [place] % (Auto) Eos % (Auto) Baso % (Auto) Lymph # (Auto) [place] # (Auto) Eos # (Auto) Baso # (Auto) Abs Immat Gran (auto) Absolute Neuts (auto) Absolute Nucleated RBC Nucleated RBC % (auto) Smear Tech's Comments PT Whole Blood PT INR Whole Blood INR APTT Anion Gap Estim Creat Clear Calc Estimated GFR POC Glucose 91 Random Glucose Lactic Acid Calcium Magnesium Total Bilirubin Direct Bilirubin AST ALT Alkaline Phosphatase Total Creatine Kinase Total Protein Albumin Triglycerides Cholesterol LDL Cholesterol, Calc HDL Cholesterol Lipase Urine Color Urine Appearance Urine pH Ur Specific [place] Urine Protein Urine Glucose (UA) Urine Ketones Urine Blood Urine Nitrite Ur Leukocyte Esterase Ethyl Alcohol COVID-19 (LANIE) COVID-19 Clin Com Assessment and Plan (1) History of pulmonary embolism: Status: Acute (2) Transient neurologic deficit: Status: Acute Plan 71-year-old male with a past medical history of hypertension, hyperlipidemia, diabetes, recent diagnosis of pancreatic cancer with metastasis to the liver-on chemotherapy, hiatal hernia, Gilbert's syndrome, obstructive sleep apnea, GERD, BPH, Pulmonary embolism on Eliquishistory of concussion; presented to the hospital today with a chief complaint of Slurring of speech. Symptoms currently resolved.? Admitted for possible TIA. ? Transient neurological deficit presented with brief episode of slurring of words no recurrent symptoms since admission ? CT scan showed decreased attenuation in the parietal white matter-likely infarction -> age-indeterminate CT angio head and neck showed no evidence of large vessel occlusion, showed loss of esquivel-white matter differentiation within the lateral aspect of the right frontal lobe age indeterminate no acute evidence of additional acute edematous territorial infarction MRI brain ordered continue Eliquis seen by Dr. Mccoy he agrees with MRI brain and also due to another episode of confusion and being spacey he recommended EEG follow MRI and EEG report Pancreatic cancer with metastasis to liver:? Diagnosed in February.? Follows in [place].? On chemotherapy, recommend treatment as before History of pulmonary embolism:? continue Eliquis. History of diabetes:? Diet controlled. History of hypertension: soft blood pressure will hold lisinopril follow BP DVT prophylaxis:? on Eliquis Code status: Full code will need continued inpatient hospitalization due to 2 episodes of transient neurological deficit needs further workup and recommendation by Neurology. Quality Stroke Does the patient have a stroke diagnosis?: No VTE Prior VTE?: No VTE Risk Level:: Medical - moderate - high VTE Device Contraindication: Treatment Not Indicated VTE Drug Contraindication: N/A - Med Ordered
[2022-04-16 14:43] LABS: Glucose, Whole Blood 174 mg/dL (60-115)
[2022-04-16 17:58] LABS: Glucose, Whole Blood 153 mg/dL (60-115)
[2022-04-16] MEDS: Insulin Lispro 100 UNIT/ML 3 ML VIAL SUBCUT (19:11)
[2022-04-16 21:25] LABS: Glucose, Whole Blood 123 mg/dL (60-115)
[2022-04-16] MEDS: Sennosides 8.6 MG TABLET 17.2 MG PO (22:56)
[2022-04-17] MEDS: 0.9 % Sodium Chloride Flush 3 ML SYRINGE IVFLUSH ×2 (01:15→09:46)
[2022-04-17 03:00] VITALS: BP 118/62; PULSE 70; RESP 16; TEMP 36.5; O2SAT 97
[2022-04-17 07:10] LABS: Glucose, Whole Blood 138 mg/dL (60-115)
[2022-04-17 07:48] VITALS: BP 108/55; PULSE 70; RESP 16; O2SAT 97
--- NOTE | 2022-04-17 08:55 | P.CDIC_ITS ---
CDI Concurrent Query Documentation Clarification: PHYSICIAN'S DOCUMENTATION REQUEST Date of Query: 04/17/22 0855 Patient Name: Anshu Andino Admit Date: 04/15/22 Dear Doctor, A review of the medical record indicates additional documentation may be needed. Please review below and update the documentation accordingly. Clinical Indicators: Risk Factors/Clinical Indicators/Treatments Labs 04/15 - potassium 3.1 L ED: potassium level was low, ordered potassium chloride IV. Please clarify based on the above if: Hypokalemia or other etiology of lab findings: * [ ] was present on admission * [ ] was not present on admission * Unable to determine Use of terms such as suspected, likely, concern for, or probable (associated with a specific diagnosis that is being evaluated, monitored, or treated as if it exists) are acceptable and can be coded in the inpatient setting, when documented at the time of discharge. Thank you, My [facility], CDIS Extension: [phone] Please use your independent medical judgment in providing your response. THIS QUERY IS PART OF THE PERMANENT MEDICAL RECORD Provider Response: Other Other Diagnosis: hypokalemia
--- NOTE | 2022-04-17 09:14 | PM.HEMONCCN ---
Subjective - Subjective Chief complaint: Consult for: 1. Pancreatic carcinoma. 2. Cerebral infarcts. Patient: new to practice Consult date: 04/17/22 Requesting Physician: Bob. Primary Care Provider: Radha Sales MD Medical Summary: DIAGNOSIS: 1. PANCREATIC CARCINOMA. 2. CEREBRAL INFARCTS. HPI - Consult Narrative Reason for consult: Consult for: Narrative: Anshu Andino is a 71 year old gentleman, with a past medical history of hypertension, hyperlipidemia, diabetes, recent diagnosis of pancreatic cancer with metastasis to the liver, recieved one cycle of FOLFIRINOX chemotherapy, hiatal hernia, Gilbert's syndrome, obstructive sleep apnea, GERD, BPH, Pulmonary embolism on Eliquishistory of concussion; presented to the hospital today with a chief complaint of Slurring of speech. Patient mentioned that around 16:00 he felt that his speech was slurred, lasted for about 4 minutes. Denies any associated lightheadedness dizziness, numbness tingling or focal weakness. Denies any falls or trauma. Reports he has chronic right foot numbness. Denies any nausea vomiting or diarrhea. Review of all other systems is negative except mentioned above ER course: Per ER team patient exam was nonfocal, CT head showed Decreased attenuation in the parietal white matter, likely infarction. Admitted to the hospital for further management [facility] Medical History: Adult general medical exam BPH (benign prostatic hyperplasia) Concussion GERD (gastroesophageal reflux disease) Sterling syndrome Hypercholesterolemia Hypertension Jejunitis Negative depression screening Obstructive sleep apnea Tubular adenoma of colon Type 2 diabetes mellitus with hyperglycemia Family History: Father Diabetes CVD (cardiovascular disease) Mother Stroke Review of Systems - Constitutional Reports system reviewed and no additional complaints, except as documented, Reports fatigue, Reports headache(s), Reports lack of energy, Reports weakness, Reports weight loss - Eyes Reports system reviewed and no additional complaints, except as documented, Reports blurry vision - ENT Reports system reviewed and no additional complaints, except as documented - Cardiovascular Reports system reviewed and no additional complaints, except as documented, Denies chest pain at rest - Respiratory Reports no additional respiratory complaints, Denies chest congestion - Gastrointestinal Reports system reviewed and no additional complaints, except as documented, Denies abdominal pain, Denies nausea - Genitourinary Genitourinary: Reports no additional male genitourinary complaints, Denies decreased urination - Musculoskeletal Reports system reviewed and no additional complaints, except as documented, Reports back pain - Integumentary/Breasts Skin/Breast: Reports no additional skin complaints, Denies bleeding lesions - Neurologic Reports system reviewed and no additional complaints, except as documented - Psychiatric Reports system reviewed and no additional complaints, except as documented - Endocrine Reports no additional endocrine complaints - Hematologic/Lymphatic Reports system reviewed and no additional complaints, except as documented - Allergic/Immunologic Reports system reviewed and no additional complaints, except as documented Oncology Screenings - ECOG Performance Status ECOG Performance Status: 2 [facility] Medical History: Medical History (Last Reviewed 04/16/22 @ 11:19 by Guerline Jones PT) Adult general medical exam BPH (benign prostatic hyperplasia) Concussion GERD (gastroesophageal reflux disease) Sterling syndrome Hypercholesterolemia Hypertension Jejunitis Negative depression screening Obstructive sleep apnea Tubular adenoma of colon Type 2 diabetes mellitus with hyperglycemia Functional capacity: wheelchair bound Patient : No Family History: Family History (Last Reviewed 04/15/22 @ 19:09 by Zander Ojeda MD) Father Diabetes CVD (cardiovascular disease) Mother Stroke Sister Cancer Surgical History: Surgical History (Last Reviewed 04/16/22 @ 11:19 by Guerline Jones PT) History of colonoscopy History of removal of cyst Hx of knee surgery Social History: Social History (Last Reviewed 04/15/22 @ 19:09 by Zander Ojeda MD) Living Situation History: Housing: House Tobacco History: Patient Tobacco Use Status: Never used Tobacco e-Cigarette/Vaping Use: Never Used Occupation Assessmet: service: No Current occupational status: retired Home Medications and Allergies Current Medications: Current Medications Acetaminophen (Acetaminophen 325 Mg Tablet) 650 mg PO Q6H PRN PRN Reason: Pain, Mild (Pain Scale 1-3) Apixaban (Apixaban 5 Mg Tablet) 5 mg PO BID [facility] Last Admin: 04/16/22 19:11 Dose: 5 mg Atenolol (Atenolol 25 Mg Tablet) 25 mg PO DAILY [facility]; Protocol Last Admin: 04/16/22 08:29 Dose: 25 mg Dextrose (Dextrose 50 % 25 Gm/50 Ml Syringe) 25 gm IVPUSH Q15M PRN; Protocol PRN Reason: per Hypoglycemia Standing Ord. Glucose (Glucose Gel 15 Gm Gel..Gram.) 15 gm PO Q15M PRN; Protocol PRN Reason: per Hypoglycemia Standing Ord. Insulin Human Lispro (Insulin Lispro 100 Unit/Ml 3 Ml Vial) 0 unit SUBCUT QIDACHS [facility]; Protocol Last Admin: 04/16/22 21:31 Dose: Not Given Melatonin (Melatonin 3 Mg Tablet) 6 mg PO BEDTIME PRN PRN Reason: Insomnia Ondansetron HCl (Ondansetron Odt 4 Mg Tab.Rapdis) 4 mg TRANSLINGU Q8H PRN PRN Reason: nausea Senna (Sennosides 8.6 Mg Tablet) 17.2 mg PO BEDTIME PRN PRN Reason: Constipation Last Admin: 04/16/22 22:56 Dose: 17.2 mg Sodium Chloride (0.9 % Sodium Chloride Flush 3 Ml Syringe) 3 ml IVFLUSH [facility] Last Admin: 04/17/22 01:15 Dose: 3 ml Home Medications Medication Instructions Recorded Confirmed Type ondansetron HCl 8 mg tablet 1 tab PO Q8H PRN nausea 04/15/22 04/15/22 History prochlorperazine maleate 10 mg 1 tab PO Q6H PRN Nausea 04/15/22 04/15/22 History tablet Allergies Allergy/AdvReac Type Severity Reaction Status Date / Time atorvastatin [Lipitor] Allergy Unknown Unknown Verified 04/15/22 20:39 simvastatin Allergy Unknown Unknown Verified 04/15/22 20:39 Physical Exam Vital signs: Vital Signs Temp 97.7 F 04/17/22 03:00 Pulse 70 04/17/22 07:48 Resp 16 04/17/22 07:48 BP 108/55 L 04/17/22 07:48 Pulse Ox 97 04/17/22 07:48 O2 Del Method 04/17/22 07:48 Intake & Output 04/16/22 04/17/22 04/17/22 18:59 06:59 18:59 Intake Total 360 / 360 Output Total 600 / 600 Balance -240 / -240 Urine Output (Average ml/kg/hr) 0.74 Intake: Intake, Oral Amount 360 / 360 Output: Output, Urine Amount 600 / 600 Other: Number of Bowel Movements 1 Urine Color Yellow Stool Bathroom Weight 67.7 kg - Constitutional Present: moderate distress - Routine HEENT Exam Head: Present: normal inspection, normocephalic ENT: Present: normal oropharynx - Routine Neck Exam Present: supple - Routine Respiratory Exam Present: CTAB - Routine Cardiovascular Exam Cardiovascular: Present: RRR, S1, S2 - Routine Abdominal Exam Present: soft, nontender - Routine Extremities Exam Present: nontender - Routine Skin Exam Present: intact - Routine Neurological Exam Present: alert, oriented X3 Hem/Onc Consult Result - Labs CBC & Chem 7: 04/16/22 06:10 04/16/22 06:10 Assessment and Plan Patient Active problem list reviewed?: Yes (1) Transient neurologic deficit Status: Acute Assessment and plan: 71-year-old male with a past medical history of hypertension, hyperlipidemia, diabetes, recent diagnosis of pancreatic cancer with metastasis to the liver-on chemotherapy, hiatal hernia, Gilbert's syndrome, obstructive sleep apnea, GERD, BPH, Pulmonary embolism on Eliquis history of concussion; He presented to the hospital with a chief complaint of Slurring of speech. Symptoms then resolved. Admitted for possible TIA. However he has had recurrent symptoms. CT scan showed decreased attenuation in the parietal white matter-likely infarction -> age-indeterminate. CT angio head and neck showed no evidence of large vessel occlusion. PLAN: To proceed with MRI: Several small foci of acute infarction seen in the right middle cerebral artery vascular territory, with confluent area of infarction seen in the right parietal lobe.] Small acute infarcts also noted in the left Parietal lobe. No intracranial mass. Speech and swallow eval/PT/OT. History of pulmonary embolism: Patient has been on Eliquis, however appears to be having recurrent neurological events, resulting from ongoing infarctions. PLAN: Would recommend switching him over to Lovenox for better protection, especially in the setting of underlying malignancy. Thank you for the consult, I will follow along with you, Cc: Dr. Rojas. (2) Pancreatic cancer Status: Acute Assessment and plan: 71-year-old gentleman with Pancreatic cancer with metastasis to liver: He was diagnosed in February. He has been started on FOLFIRINOX chemotherapy. He follows in [place] for his oncological care. D/W his oncology team. PLAN: We will follow his blood count while he is in-house. He will return to [place] for his next cycle of chemotherapy. Hopefully he will have a good response. Thank you, - Time Spent With Patient Time Spent with Patient (in minutes): 30
[2022-04-17] MEDS: Enoxaparin Sodium 80 MG/0.8 ML SYRINGE 70 MG SUBCUT (09:46)
[2022-04-17] MEDS: atenoloL 25 MG TABLET PO (09:47)
[2022-04-17 09:48] VITALS: BP 115/77; PULSE 75; RESP 18; O2SAT 98
--- NOTE | 2022-04-17 09:50 | PC.NURSE ---
Pt and his sister educated on how to administer Lovenox injections at home and how to monitor for s/s of abnormal bleeding.
[2022-04-17 10:37] VITALS: BP 115/77; PULSE 75; O2SAT 98
--- NOTE | 2022-04-17 11:06 | MHC.STROKE ---
I MET WITH THE PATIENT AND HIS SISTER NISH TODAY AND PROVIDED STROKE EDUCATION. WE DISCUSSED THE STROKE DIAGNOSIS, I GAVE THEM A SCREENSHOT OF THE MRI IMAGES AND DESCRIBED THE LOCATION OF THE STROKES. WE DISCUSSED HIS INDIVIDUAL RISK FACTORS AND PLAN OF CARE. WE ALSO TALKED ABOUT HIS NEW CANCER DIAGNOSIS AND I WAS ABLE TO LISTEN AND PROVIDE SUPPORT. HE IS CURRENTLY BEING TRE[place] [facility] FOR [place] BUT THE PROGNOSIS IS POOR, HE HAS LOST 50 LBS SINCE JULY. HE IS SINGLE AND HS BROTHER AND SISTER NISH ARE STAYING WITH HIM. HE IS REQUESTING VNA AND PT AT HOME, HE HAS BEEN WORKING WITH [employer]. I ANSWERED ALL OF THEIR QUESTIONS.
--- NOTE | 2022-04-17 11:48 | MHC.CM.PN ---
Per MD, Patient will be medically cleared for dc to home today with services. Patient was active with [facility], who has been notified of today's d/c (& to add home PT). Last IMM addressed on 04/16/22.
--- NOTE | 2022-04-17 11:50 | P.F2F_ITS ---
Service Date Service Date: 04/17/22 Encounter Date of encounter: 04/17/22 Reasons for Services Signs and symptoms assessed: generalized weakness, multiple acute infarction Reason for chcf: medication treatment and teach disease management Reason for physical therapy: home safety and mobility MD Overseeing Care: Any Rojas Homebound: Leaving the home is medically contraindicated at this time without the asist of a device and/or another person due th the listed conditions above and below. Reason homebound: weakness related to hospital stay Certification: Based on the above findings, I certify that this patient is confined to the home and needs intermittent chcf care, physical therapy and/or speech therapy, or continues to need occupational therapy. The patient is under my care, and I have initiated the establishment of the plan of care. The patient will be followed by a physician who will periodically review the plan of care.
[2022-04-17] MEDS: Heparin Sodium,Porcine Flush 50 UNITS/5 ML SYRINGE IVFLUSH (11:51)
--- NOTE | 2022-04-17 11:53 | PM.DS ---
DS: Providers Provider Date of Service: 04/17/22 Date of admission: 04/15/22 20:27 Primary care physician: Radha Sales MD Consults: 04/15/22 20:28 Consult to Neurology Routine Consulting Provider: Smitha Mccoy Reason for consultation: Dysarthria/abnormal CT head 04/17/22 09:03 Consult to Hematology / Oncology Routine Consulting Provider: Manny Moura Reason for consultation: pe/brrain infraction Has provider been notified: No DS: Diagnosis Discharge Diagnosis (1) History of pulmonary embolism: Status: Acute (2) Transient neurologic deficit: Status: Acute DS: Summary Hospital Course Hospital Course: Date of Service: 04/15/22 Chief Complaint: dysarthria 71-year-old male with a past medical history of hypertension, hyperlipidemia, diabetes, recent diagnosis of pancreatic cancer with metastasis to the liver-on chemotherapy, hiatal hernia, Gilbert's syndrome, obstructive sleep apnea, GERD, BPH, Pulmonary embolism on [place] of concussion; presented to the hospital today with a chief complaint of Slurring of speech. ? Patient mentioned that around 16:00 he felt that his speech was slurred, lasted for about 4 minutes.? Denies any associated lightheadedness dizziness, numbness tingling or focal weakness. ? Denies any falls or trauma. ? Reports he has chronic right foot numbness.? Denies any nausea vomiting or diarrhea.? Review of all other systems is negative except mentioned above ? ER course: Per ER team patient exam was nonfocal, CT head showed Decreased attenuation in the parietal white matter, likely infarction. Admitted to the hospital for further management hospital course 71-year-old male with a past medical history of hypertension, hyperlipidemia, diabetes, recent diagnosis of pancreatic cancer with metastasis to the liver-on chemotherapy, hiatal hernia, Gilbert's syndrome, obstructive sleep apnea, GERD, BPH, Pulmonary embolism on [place] of concussion; presented to the hospital today with a chief complaint of Slurring of speech. Symptoms currently resolved.? Admitted for possible TIA. ? Acute multiple CVA 71-year-old gentleman recently diagnosed with pancreatic cancer with liver mets receiving chemotherapy at [facility] presented to [facility] with an episode of slurred speech lasting for 4 minutes, he also had 1 other episode of being confused and spacey few days prior to this, in emergency room patient had normal speech as well as normal neuro examination, workup including CT brain showed decreased attenuation in the parietal white matter-likely infarction -> age-indeterminate,CT angio head and neck showed no evidence of large vessel occlusion, showed loss of esquivel-white matter differentiation within the lateral aspect of the right frontal lobe age indeterminate , patient seen by Neurology Dr. Mccoy an MRI brain that showed several small focus of acute infarction in the right middle cerebral artery territory with confluent area of infarction seen in the right parietal lobe small acute infarction were also noted in the left parietal lobe dose no evidence of hemorrhage or significant mass effect, case discussed with chief digital media officer Dr. Moura patient Eliquis has been discontinued and patient placed on Lovenox 1 milligram/kg twice daily patient has been recommended to continue outpatient follow-up with PCP and continue follow-up at [facility] for recently diagnosed pancreatic cancer. An EEG was also obtained that showed no seizure-like activity. Mild hypokalemia repleted repeat potassium is within normal range Pancreatic cancer with metastasis to liver:? Diagnosed in February, continue outpatient treatment as before. History of pulmonary embolism:? recommend to discontinue Eliquis and placed on Lovenox History of diabetes:? Diet controlled. History of hypertension:? soft blood pressure therefore recommend to discontinue lisinopril. Time Spent with Patient Time attestation: Total time spent providing and/or coordinating discharge services: Discharge coordination time: Greater than 30 minutes Quality: Safe Use of Opioids Does Pt have an Active Cancer Diagnosis on the Problem List?: No Quality: Stroke Does the patient have a stroke diagnosis?: No Physical Exam Vital Signs: Vital Signs: Last Vital Signs Temp 97.7 F 04/17/22 03:00 Pulse 75 04/17/22 10:37 Resp 18 04/17/22 09:48 BP 115/77 04/17/22 10:37 Pulse Ox 98 04/17/22 10:37 O2 Del Method 04/17/22 09:48 BMI result Body Mass Index 22.6 Const: Other: General? awake alert x3, no acute distress.? Neck no JVD. CVS? regular rate rhythm, Respiratory lungs clear to auscultation, no respiratory distress, no wheeze, no rhonchi. Gastrointestinal abdomen soft, nontender, bowel sounds audible,? no guarding , no rigidity. Extremities no? edema. Neuro nonfocal ,speech clear. Skin no rash psych appropriate affect DS: Data Data Completed and Pending Labs on day of discharge: Laboratory Results - last 24 hr 04/16/22 04/16/22 04/16/22 14:38 17:47 21:15 POC Glucose 174 H 153 H 123 H 04/17/22 07:02 POC Glucose 138 H Preliminary micro results at discharge 04/15/22 18:01 Blood Culture - Preliminary Blood - Venous No growth after 24 hours. 04/15/22 17:43 Blood Culture - Preliminary Blood - Venous No growth after 24 hours. Discharge Plan Discharge Patient Disposition: Home Health Service Discharge Diagnosis: multiple acute infarction hypokalemia Referrals: [facility] [Outside] - 1 Week Po,Radha Sullivan MD [Primary Care Provider] - 1 Week Discharge Medications: New enoxaparin 80 mg/0.8 mL Syringe 70 mg subcut BID Qty: 60 0RF Continued (DME) Ensure plant based vanilla flavor 3 a day for 3 months (total of 29,700 ml/month) See Rx Instructions .Route .MEDSUPPLY Qty: 270 3RF Rx Instructions: As directed atenolol 25 mg tablet 25 mg PO DAILY 90 Days Qty: 90 3RF (DME) Diabetic shoes See Rx Instructions .Route .MEDSUPPLY Qty: 1 0RF Rx Instructions: As directed ondansetron HCl 8 mg tablet 1 tab PO Q8H PRN (Reason: nausea) prochlorperazine maleate 10 mg tablet 1 tab PO Q6H PRN (Reason: Nausea) Discontinued lisinopril 20 mg tablet 20 mg PO DAILY 90 Days Qty: 90 3RF Eliquis DVT-PE Treat 30D Start 5 mg (74 tabs) tablets,dose pack 5 mg PO BID Discharge Orders: Discharge Order (Routine); Ordered 04/17/22 Ordered By: Any Rojas Diet: Advance to usual diet Activity on Discharge: As tolerated Stand Alone Forms: Patient Portal Discharge page Care Plan Goals: you are diagnosed to have multiple brain infarctions seen in the right middle cerebral artery territory, small acute infarction also noted in the left parietal lobe no evidence of hemorrhage or significant mass effect noted, there is no evidence of intracranial mass you have been started on Lovenox 1 milligram/kg twice daily, stop Eliquis you are noted to have soft blood pressure therefore lisinopril has been discontinued continue all home medications as before Echocardiogram showed no cardiac thrombus EEG normal Health Concerns: continue close follow-up for pancreatic cancer with liver Mets at [facility] Plan of Treatment: continue outpatient follow-up with primary care physician and [facility] with Dr. Leonor Nair for continued chemotherapy Assessment: as above
--- NOTE | 2022-04-17 12:05 | PC.NURSE ---
Picc line dressing to left arm changed with new bio patch n place. Picc also flushed with heparin.
== END 2022-04-17 12:54 | disposition home health service (06) | DRG 65 ==
LOC: HO.ED 19:17 → HO.EDOVER 20:33
PROVIDERS: Admitting Provider Hospitalist; Emergency Provider Emergency Medicine Emergency Medical Services; PCP Internal Medicine; Visit Provider Hospitalist
DX: I63.511 Cerebral infarction due to unspecified occlusion or stenosis of right middle cerebral artery (principal); C25.9 Malignant neoplasm of pancreas, unspecified; C78.7 Secondary malignant neoplasm of liver and intrahepatic bile duct; E87.6 Hypokalemia; E80.4 Gilbert syndrome; N40.0 Benign prostatic hyperplasia without lower urinary tract symptoms; R29.700 NIHSS score 0; I10 Essential (primary) hypertension; G47.33 Obstructive sleep apnea (adult) (pediatric); Z20.822 Contact with and (suspected) exposure to COVID-19; Z86.711 Personal history of pulmonary embolism; Z86.010 Personal history of colon polyps; Z88.8 Allergy status to other drugs, medicaments and biological substances; Z79.899 Other long term (current) drug therapy
CPT/HCPCS: 36415; 70450; 70496; 70498; 70553; 71045; 80048; 80061; 80076; 81003; 82077; 82550; 82947; 83605; 83690; 83735; 84484; 85025; 85610; 85730; 87040; 87635; 93005; 93306; 95816; 97163; 97167; 99285; A9585; J1642; J1650; Q9967